=== PATIENT | female | born 1940 | race Caucasian/White ===

== ENCOUNTER 2017-06-16 14:26 | Inpatient (IN) | payer MEDICARE ==
[~2017-06-16] VITALS: Ht 167.6 cm; Wt 142.4 kg
--- NOTE | ~2017-06-16 | CN ---
PATIENT NAME:JUANA VERA MEDICAL RECORD: [id number] : 44 LOCATION:D. D.2120 ADMIT DATE: 06/16/17 ACCOUNT: [id number] CONSULTING PHYSICIAN: ALFREDO HARRIS MD REFERRING PHYSICIAN: SU PINEDA MD DATE OF CONSULTATION: 06/18/2017 HISTORY OF PRESENT ILLNESS: Juana Vera is a 76-year-old woman well known to me for rheumatoid arthritis, who has been currently admitted for acute pneumonia, hypoxemia and leukocytosis. The patient has approximately 18 months history of seronegative rheumatoid arthritis, when she presented with marked pain, swelling or stiffness of shoulders, elbows, wrists, fingers, knees, ankles with high ESR and CRP. Negative RA. Other serology is normal. She was initially placed on prednisone due to very active disease, received fairly high dose. She was started on methotrexate dose and was gradually increased to 25 mg weekly. She had some response. Later, sulfasalazine and hydroxychloroquine were added. She made some improvement. Prednisone was gradually reduced to moderate dose. Because of continued activity, she was started on Orencia on proper dosing fashion 1000 mg dosing approximately 5 months ago. Coincide with the Orencia, she has had marked improvement in her arthritis. She had been further tapering prednisone down to 5 mg daily. She has been doing well recently. She reports over the preceding few days for admission she had some cough, fever, chilliness and sputum production. She presented to Dr. Wilson's office on 06/16/2017 with WBC of 25,000, hemoglobin 13.8 and platelets normal. Sodium 134, potassium 4.5, BUN 10, creatinine 0.5. Liver enzymes normal. Chest x-ray on 06/16 showed pulmonary vascular congestion, some increased interstitial opacities, some bony left costophrenic angle, which was stable compared to previous chest x-ray of 05/15. Chest CT of 06/17 showed patchy ground glass and consolidative opacities in the right upper lobe compatible with an infectious or inflammatory process and all bronchiectasis in both lungs, hepatomegaly consistent both in lobes and liver. She reports she has improved over the last 24 hours with less shortness of breath and cough. Sputum was green and now is improving color. HOME MEDICATIONS: Methotrexate approximately 25 mg every Tuesday, and leucovorin 5 mg Tuesday, , Tuesday, folic acid 1 mg b.i.d. Tuesday, Tuesday and Tuesday, prednisone 5 mg daily, Orencia 1000 mg every 4 weeks (started approximately in December 2016), hydroxychloroquine, previous sulfasalazine, vitamin D 2000 units b.i.d., aspirin 81 mg daily, alendronate 70 mg weekly, vitamin E and Singulair. CURRENT MEDICATIONS: Xopenex every 4 hours, Atrovent updrafts, Mucinex b.i.d., Flonase nasal spray b.i.d., Lovenox 40 mg daily, Tessalon 200 mg t.i.d., aspirin 81 mg daily, Solu-Medrol 40 mg every 8 hours, Pulmicort 0.5 mg b.i.d., Brovana b.i.d., Singulair 10 mg daily, Zithromax 500 mg every 24 hours, pantoprazole 40 mg daily, Rocephin 1 g IV every 24 hours, Zofran 4 mg p.r.n., hydrocodone 10/325 mg q.6 hours p.r.n. and Tylenol p.r.n. PAST MEDICAL HISTORY: She has history of asthma and pneumonia. She is a remote smoker. She had history of partial colon resection for diverticulosis, right total knee replacement done for osteoarthritis, hysterectomy and appendectomy. CONSULT REPORT [id number] JUANA VERA ALLERGIES: SHE IS ALLERGIC TO ESTROGENS. SOCIAL HISTORY: She quit smoking many years ago. She does not drink alcohol. She lives in local area. FAMILY HISTORY: Negative for inflammatory arthritis. REVIEW OF SYSTEMS: She reports she had both Pneumovax and Prevnar 13. She has annual flu shots, but she has also had previous Zostavax. She denies headache, sinus drainage, mouth ulcers, chest pain, palpitations, abdominal pain, nausea, vomiting, diarrhea, dysuria, urgency, calf pain, previous DVT, bleeding or clotting disorders. PHYSICAL EXAMINATION: VITAL SIGNS: Blood pressure 155/63, pulse 88, respirations 18, temperature 98 and O2 saturation 96% on 4 liters. GENERAL: A well-developed, morbidly obese woman, mild tachypnea, but no acute distress. She is alert, oriented. HEAD: Normal female hair pattern. Eyes: Conjunctivae are clear. Mouth is moist without lesions. NECK: Supple, trachea is midline. There is no adenopathy in neck or supraclavicular areas. LUNGS: Reveal some faint diffuse wheezing without bronchial breath sound or rales. CARDIOVASCULAR: S1, S2 are normal without gallop, murmur or rub. Carotids are 2+ without delay or bruit. EXTREMITIES: Pedal pulses, 1+ trace edema of the feet. ABDOMEN: Soft, obese, nontender, without masses. MUSCULOSKELETAL: At this time, there is no inflammation or tenderness in the wrists fingers, elbows, shoulders, knees, and ankles. She has painless range of motion. SKIN: Without rash, petechiae, purpura or nodules. PSYCHIATRIC: Normal affect, alert and oriented. IMPRESSION: 1. Pneumonia, primarily right lung upper lobe with evidence of bronchiectasis, wheezing, leukocytosis and fever. 2. Seronegative rheumatoid arthritis, onset approximately 18 months ago, marked improvement with methotrexate low-dose prednisone, Orencia and previous sulfasalazine, Plaquenil. 3. Relevant immunosuppression from medications. 4. History of asthma. 5. Remote cigarette smoking. 6. Morbid obesity. RECOMMENDATIONS: 1. Continue supportive care. 2. Continue broad-spectrum antibiotics. 3. Continue to hold methotrexate and Orencia. 4. As the patient responds to treatment made later taper steroids back towards home dose 5 mg daily. 5. If the patient recovers from pneumonia, may be able to restart methotrexate at a lower dose. 6. We will review office chart to confirm doses of medications and to confirm CONSULT REPORT [id number] JUANA VERA that she has had previous vaccinations. TRANSINT:[id number] Voice Confirmation ID: [id number] DOCUMENT ID: [id number] ALFREDO HARRIS MD CC: [id number] DICTATION DATE: 06/18/17 1055 SCHEDULING ASSISTANT: 06/18/17 1731 ADM IN [facility] [address] [place] [address]
--- NOTE | ~2017-06-16 | OP ---
PATIENT NAME: LAM VERA MEDICAL RECORD: [id number] :42 LOCATION:D. D.0 ADMISSION DATE:06/16/17 SURGEON: PATRICIA RITCHIE MD DATE OF OPERATION: 06/22/2017 PROCEDURE: Fiberoptic bronchoscopy. INDICATION: Ms. Vera was admitted with acute asthma, COPD exacerbation and pneumonia. The patient had problems clearing her secretions. She has persistent wheezing and cough. Fiberoptic bronchoscopy was carried out to clear the airway of any mucous plug. MONITORING: EKG, pulse, blood pressure, SpO2 were monitored throughout the procedure. MEDICATIONS: Versed 2 mg IV, fentanyl 50 mcg IV, atropine 0.6 IM, Phenergan 12.5 mg IV. PROCEDURE IN DETAIL: The fiberoptic bronchoscope was easily passed through the mouth. The epiglottis was normal. The vocal cords were normal, moving equally on phonation. The main trachea, no endobronchial lesion was seen, but with expiration and coughing, the trachea will totally close. There were white yellowish secretions in the main trachea. The eliud was sharp. There were white yellowish secretion in the right main bronchus. There was severe bronchitic changes that bled easily by touching by the bronchoscope. With the expiration, the right main trachea and the left main trachea will totally occlude. There are no endobronchial lesion seen on the right side. The left main bronchus, the left upper lobe, left lower lobe within normal range, it will totally occlude with expiration and coughing. There were white yellowish secretion on the left side. No endobronchial lesion was seen. Specimen washing was obtained and sent for routine culture and sensitivity, AFB and fungus. The patient has severe tracheal bronchomalacia. This is the problem of clearing her secretions. TRANSINT:[id number] Voice Confirmation ID: [id number] DOCUMENT ID: [id number] PATRICIA RITCHIE MD CC: [id number] DICTATION DATE: 06/22/1744 RESOURCE RECOVERY SPECIALIST: 06/22/17 1148 ADM IN [facility] [address] [id number]
[~2017-06-16 14:26] MED LIST: ACETAMINOPHEN500 M1 PO; ADVAIR HFA 45/212 GM INH; BACTRIM DS TABL1 TAB PO; BENADRYL 2% CRE30 GM TOPICAL; BENADRYL50 MG PO; COLACE100 MG PO; ELIQUIS2.5 MG PO; ELIQUIS5 MG PO; HYDROCODONE-APA1 TAB PO; METHOTREXATE2.5 MG PO; MIRALAX17 GM PO; PERCOCET 10/3251 TA1 PO; PROVENTIL HFA6.7 GM INH; SINGULAIR10 MG PO; SPIRIVA18 MCG INH; STERAPRED DS 1210 MG PO; ZOFRAN4 MG PO
--- NOTE | 2017-06-16 14:30 | NUR ---
RECEIVED PT TO ROOM 2118 VIA EMS PER STRETCHER FROM DR GAITAN'S OFFICE DYSPNEA NOTED C/O DIZZINESS WHEN CHANGING POSITIONS O2 ON AT 3 LPM NC NO IV ACCESS TELEMETRY PLACED SR RATE 93
[2017-06-16 15:11] VITALS: BP 134/79; BMI 48.5
--- NOTE | 2017-06-16 15:35 | NUR ---
ARRIVED FROM DR. GAITAN'S OFFICE VIA AMBULANCE. 02 ON @ 2 L. COUGHING WITH PRODUCTION OF GREEN EXPECTORANT. IV STARTED IN R FOREARM WITH 20 G 1 INCH ON 1ST ATTEMPT. RALES, WHEEZING ON BOTH INSPIRATION AND EXPIRATION NOTED . SKIN WARM TO TOUCH BUT TEMP IS 99.3. MONITOR SHOWS NSR WITH RATE OF 88. WILL CONTINUE TO MONITOR.
--- NOTE | 2017-06-16 15:37 | NUR ---
PT ON FALL PRECAUTIONS WITH YELLOW BRACELET APPLIED. PT REFUSES TO WEAR NON SKID SOCKS. BED ALARM ON.
[2017-06-16 15:59] LABS: HEMATOCRIT 43.8 % (36.0-48.0); HEMOGLOBIN 13.8 g/dL (12-16); MCH 31.3 pg (26.0-34.0); MCHC 31.5 g/dL (31.0-37.0); MCV 99.3 fL (80.0-100.0); MEAN PLATELET VOLUME 11.5 fL (7.4-10.4); PLATELET COUNT 221 10x3/uL (130-400); RBC 4.41 10x6/uL (4.00-5.40); RDW 15.3 % (11.5-14.5); WBC 25.1 10x3/uL (4.8-10.8)
[2017-06-16] MEDS ORDERED: PREDNISONE5 MG PO (16:04)
[2017-06-16] MEDS ORDERED: HYDROCODONE-APA1 TAB PO (16:05)
[2017-06-16 16:14] LABS: LYMPHOCYTES 4 % (15-50); MONOCYTES 5 % (2-11); NEUTROPHILS 89 % (40-80); PLATELET ESTIMATE NORMAL
[2017-06-16 16:17] LABS: ALBUMIN 3.2 g/dL (3.4-5.0); ALKALINE PHOSPHATASE 54 U/L (46-116); ALT (SGPT) 25 U/L (10-68); BILIRUBIN - TOTAL 0.72 mg/dL (0.2-1.3); CALC OSMOLALITY 269 mosm/kg (275-300); CALCIUM 7.9 mg/dL (8.5-10.1); CARBON DIOXIDE 29.5 mmol/L (21.0-32.0); CHLORIDE - SERUM 97 mmol/L (98-107); CREATININE - SERUM 0.5 mg/dL (0.6-1.3); GLUCOSE 154 mg/dL (74-106); POTASSIUM - SERUM 4.5 mmol/L (3.5-5.1); PROTEIN - SERUM 6.3 g/dL (6.4-8.2); SODIUM 134 mmol/L (136-145); UREA NITROGEN 10 mg/dL (7-18); eGFR NON AFRICAN AMERICAN > 90 mL/min (90-120)
[2017-06-16] MEDS ORDERED: LEUCOVORIN CALCI5 MG PO (18:09)
[2017-06-16] MEDS ORDERED: ALENDRONATE SOD70 MG PO (18:11)
[2017-06-16] MEDS ORDERED: FOLIC ACID1 MG PO (18:14)
[2017-06-16] MEDS ORDERED: BAYER CHEWABLE81 MG PO (18:15)
[2017-06-16] MEDS ORDERED: VITAMIN D31000 UNIT PO (18:15)
[2017-06-16] MEDS ORDERED: VITAMIN E400 UNI2 PO (18:16)
[2017-06-16] MEDS ORDERED: MULTIPLE VITAMI1 TA1 PO (18:16)
[2017-06-16] MEDS ORDERED: KRILL OIL 1,001 EAC1 PO (18:18)
[2017-06-17] VITALS: BP 140/60
[2017-06-17 04:00] VITALS: BP 151/67
[2017-06-17 04:34] LABS: BASOPHILS 0.2 % (0-2); HEMATOCRIT 41.5 % (36.0-48.0); HEMOGLOBIN 13.4 g/dL (12-16); IMMATURE GRANULOCYTES 0.5 % (0-5); LYMPHOCYTES 5.7 % (15-50); MCH 31.5 pg (26.0-34.0); MCHC 32.3 g/dL (31.0-37.0); MCV 97.4 fL (80.0-100.0); MEAN PLATELET VOLUME 10.7 fL (7.4-10.4); MONOCYTES 7.2 % (2-11); NEUTROPHILS 85.4 % (40-80); PLATELET COUNT 219 10x3/uL (130-400); RBC 4.26 10x6/uL (4.00-5.40); RDW 15.1 % (11.5-14.5)
[2017-06-17 04:44] LABS: WBC 17.7 10x3/uL (4.8-10.8)
[2017-06-17 05:17] LABS: CALC OSMOLALITY 277 mosm/kg (275-300); CALCIUM 7.9 mg/dL (8.5-10.1); CARBON DIOXIDE 31.9 mmol/L (21.0-32.0); CHLORIDE - SERUM 102 mmol/L (98-107); GLUCOSE 184 mg/dL (74-106); POTASSIUM - SERUM 3.9 mmol/L (3.5-5.1); SODIUM 137 mmol/L (136-145); UREA NITROGEN 11 mg/dL (7-18); eGFR NON AFRICAN AMERICAN 87 mL/min (90-120)
[2017-06-17 05:20] LABS: CREATININE - SERUM 0.7 mg/dL (0.6-1.3)
--- NOTE | 2017-06-17 07:30 | NUR ---
RECEIVED PT IN BED EYES CLOSED RESP UNLABORED O2 ON 4LPM NC NAD NOTED WILL CONTINUE TO MONITOR
[2017-06-17 08:25] VITALS: BP 163/81
[2017-06-17 12:04] VITALS: BP 145/71
[2017-06-17 13:48] VITALS: Ht 167.6 cm; Wt 142.4 kg
[2017-06-17 14:30] VITALS: BP 131/65
[2017-06-17 19:00] VITALS: BP 170/70
--- NOTE | 2017-06-17 20:00 | NUR ---
PT RESTING IN BED WITH O2 OFF. NS @ 75ML/HR INFUSING AT 75ML/HR. SCDS IN PLACE. SR PER TELEMETRY. INSTRUCTED PT WEAR HER O2 @ 5L/NC TO PREVENT DESATURATION. COMPLETED ASSESSMENT. CALL LIGHT IN REACH. CPOC.
--- NOTE | 2017-06-17 23:15 | NUR ---
BEDTIME MEDS GIVEN. PT GIVEN SHOWER PER OSTOMY RN.
--- NOTE | 2017-06-18 03:32 | NUR ---
UP TO BSC TO VOID. RT IN ROOM TO DO BREATHING TREATMENT. NO DISTRESS.
[2017-06-18 04:00] VITALS: BP 157/71
[2017-06-18 07:55] LABS: BASOPHILS 0.1 % (0-2); EOSINOPHILS 0 % (0-7); HEMATOCRIT 41.4 % (36.0-48.0); HEMOGLOBIN 12.8 g/dL (12-16); IMMATURE GRANULOCYTES 0.9 % (0-5); MCH 31.1 pg (26.0-34.0); MCHC 30.9 g/dL (31.0-37.0); MEAN PLATELET VOLUME 10.4 fL (7.4-10.4); PLATELET COUNT 245 10x3/uL (130-400); RBC 4.12 10x6/uL (4.00-5.40); RDW 15.2 % (11.5-14.5)
[2017-06-18 07:58] LABS: MCV 100.5 fL (80.0-100.0); WBC 12.6 10x3/uL (4.8-10.8)
[2017-06-18 08:00] VITALS: BP 155/63
[2017-06-18 08:17] LABS: CALC OSMOLALITY 281 mosm/kg (275-300); CARBON DIOXIDE 34.2 mmol/L (21.0-32.0); CHLORIDE - SERUM 104 mmol/L (98-107); CREATININE - SERUM 0.6 mg/dL (0.6-1.3); GLUCOSE 147 mg/dL (74-106); POTASSIUM - SERUM 4.5 mmol/L (3.5-5.1); PRO BNP 295 pg/mL (0-125); SODIUM 140 mmol/L (136-145); UREA NITROGEN 12 mg/dL (7-18); eGFR NON AFRICAN AMERICAN > 90 mL/min (90-120)
--- NOTE | 2017-06-18 08:19 | NUR ---
ASSESSMENT DONE. DENIES NEEDS
--- NOTE | 2017-06-18 10:18 | NUR ---
RESTS WITH EYES CLOSED. RESP UL ON . CALL LIGHT IN REACH. WILL MONITOR NEEDS.
[2017-06-18 12:00] VITALS: BP 137/61
[2017-06-18 16:00] VITALS: BP 119/55
--- NOTE | 2017-06-18 16:57 | NUR ---
WITHOUT CHANGES OR DISTRESS NOTED AT THIS TIME. DENIES NEEDS AT THIS TIME.
[2017-06-18 19:00] VITALS: BP 149/72
[2017-06-19] VITALS: BP 150/88
[2017-06-19 04:00] VITALS: BP 132/71
[2017-06-19 07:14] LABS: BASOPHILS 0.1 % (0-2); EOSINOPHILS 0 % (0-7); HEMATOCRIT 42.1 % (36.0-48.0); HEMOGLOBIN 13.1 g/dL (12-16); IMMATURE GRANULOCYTES 1.1 % (0-5); LYMPHOCYTES 16.3 % (15-50); MCHC 31.1 g/dL (31.0-37.0); MCV 99.5 fL (80.0-100.0); MEAN PLATELET VOLUME 10.8 fL (7.4-10.4); MONOCYTES 10.9 % (2-11); NEUTROPHILS 71.6 % (40-80); PLATELET COUNT 283 10x3/uL (130-400); RBC 4.23 10x6/uL (4.00-5.40); RDW 15.1 % (11.5-14.5); WBC 12.3 10x3/uL (4.8-10.8)
[2017-06-19 07:22] LABS: CALC OSMOLALITY 280 mosm/kg (275-300); CARBON DIOXIDE 35.7 mmol/L (21.0-32.0); CHLORIDE - SERUM 104 mmol/L (98-107); CREATININE - SERUM 0.6 mg/dL (0.6-1.3); GLUCOSE 142 mg/dL (74-106); POTASSIUM - SERUM 4.4 mmol/L (3.5-5.1); SODIUM 140 mmol/L (136-145); UREA NITROGEN 13 mg/dL (7-18); eGFR NON AFRICAN AMERICAN > 90 mL/min (90-120)
[2017-06-19 09:17] VITALS: BP 172/77
--- NOTE | 2017-06-19 09:52 | NUR ---
RESTS WITH EYES CLOSED. RESP UL ON 02 5L NC. CALL LIGHT IN REACH. WILL CONT. PLAN OF CARE.
[2017-06-19 11:49] VITALS: BP 127/82
[2017-06-19 16:01] VITALS: BP 145/80
[2017-06-19 20:00] VITALS: BP 154/77
--- NOTE | 2017-06-19 20:00 | NUR ---
RESTING IN BED WITH NO DISTRESS. O2 @ 5L/NC WITH NONLABORED RESPIRATIONS. SR PER TELEMETRY. SALINE LOCK TO RFA. SEE ASSESSMENT. CPOC.
--- NOTE | 2017-06-19 22:53 | NUR ---
BEDTIME MEDS GIVEN. BREATHING TREATMENT IN PROGRESS. WATCHING TV.
[2017-06-20 01:15] VITALS: BP 172/88
[2017-06-20 04:51] LABS: BASOPHILS 0.1 % (0-2); EOSINOPHILS 0 % (0-7); HEMATOCRIT 43.3 % (36.0-48.0); HEMOGLOBIN 13.5 g/dL (12-16); IMMATURE GRANULOCYTES 1.6 % (0-5); LYMPHOCYTES 12.8 % (15-50); MCH 30.8 pg (26.0-34.0); MCHC 31.2 g/dL (31.0-37.0); MCV 98.6 fL (80.0-100.0); MEAN PLATELET VOLUME 10.6 fL (7.4-10.4); MONOCYTES 8.1 % (2-11); NEUTROPHILS 77.4 % (40-80); PLATELET COUNT 270 10x3/uL (130-400); RBC 4.39 10x6/uL (4.00-5.40); RDW 14.7 % (11.5-14.5); WBC 10.4 10x3/uL (4.8-10.8)
[2017-06-20 04:59] LABS: CALC OSMOLALITY 281 mosm/kg (275-300); CALCIUM 8.2 mg/dL (8.5-10.1); CARBON DIOXIDE 38.1 mmol/L (21.0-32.0); CHLORIDE - SERUM 98 mmol/L (98-107); CREATININE - SERUM 0.7 mg/dL (0.6-1.3); POTASSIUM - SERUM 4.5 mmol/L (3.5-5.1); SODIUM 138 mmol/L (136-145); UREA NITROGEN 13 mg/dL (7-18); eGFR NON AFRICAN AMERICAN 87 mL/min (90-120)
[2017-06-20 05:00] LABS: GLUCOSE 206 mg/dL (74-106)
[2017-06-20 10:36] VITALS: BP 161/72
[2017-06-20 12:00] VITALS: BP 154/82
--- NOTE | 2017-06-20 13:27 | NUR ---
IV STARTED TO LEFT FA WITH 22 GAUGE CATH X 1 STICK. LINE IS PATENT.
[2017-06-20 17:43] VITALS: BP 201/85
--- NOTE | 2017-06-20 19:44 | NUR ---
AWAKE AND DOING RESP THERAPY. NO DISTRESS AT PRESENT.
[2017-06-20 20:00] VITALS: BP 159/88
--- NOTE | 2017-06-20 22:40 | NUR ---
PT REUESTED IV TO BE REPOSITION. ATTEMPTED IV IN R HAND BUT VEIN BLEW. PT VERY ANXIOUS ABOUT IV STARTS.
[2017-06-21 05:11] VITALS: BP 168/77
[2017-06-21 06:15] LABS: BASOPHILS 0.1 % (0-2); EOSINOPHILS 0 % (0-7); HEMATOCRIT 46.2 % (36.0-48.0); HEMOGLOBIN 14.9 g/dL (12-16); IMMATURE GRANULOCYTES 2.7 % (0-5); LYMPHOCYTES 10.2 % (15-50); MCHC 32.3 g/dL (31.0-37.0); MEAN PLATELET VOLUME 10.4 fL (7.4-10.4); MONOCYTES 9.1 % (2-11); NEUTROPHILS 77.9 % (40-80); PLATELET COUNT 295 10x3/uL (130-400); RDW 14.4 % (11.5-14.5); WBC 12.2 10x3/uL (4.8-10.8)
[2017-06-21 06:18] LABS: MCV 96.3 fL (80.0-100.0)
[2017-06-21 06:25] LABS: CALC OSMOLALITY 280 mosm/kg (275-300); CARBON DIOXIDE 34.5 mmol/L (21.0-32.0); CHLORIDE - SERUM 98 mmol/L (98-107); CREATININE - SERUM 0.7 mg/dL (0.6-1.3); GLUCOSE 206 mg/dL (74-106); POTASSIUM - SERUM 4.7 mmol/L (3.5-5.1); SODIUM 137 mmol/L (136-145); UREA NITROGEN 16 mg/dL (7-18); eGFR NON AFRICAN AMERICAN 87 mL/min (90-120)
[2017-06-21 09:14] LABS: IMMUNOGLOBULIN E 88 IU/mL (0-100)
[2017-06-21 09:32] VITALS: BP 164/83
[2017-06-21 16:33] VITALS: BP 162/94
--- NOTE | 2017-06-21 17:46 | NUR ---
Patient Name: LAM VERA Admission Status: Elective Accout number: [id number] Admission Date: 06-16-2017 : 1940 Admission Diagnosis:SHORTNESS OF BREATH Attending: GAYATRI Current LOS: 5 Anticipated DC Date: Planned Disposition: Home with Home Health Primary Insurance: MEDICARE A & B PLANNED EXTERNAL PROVIDER: TO BE DETERMINED BY PT CHOICE Discharge Planning Comments: * Is the patient Alert and Oriented? Yes 0 * How many steps to enter\exit or inside your home? 3 0 * PCP DR. GAITAN 0 * Pharmacy [facility] 0 * Preadmission Environment Home with Family 0 * ADLs Independent 0 * Equipment Walker 0 * Other Equipment ANY [facility] PROVIDER EXCEPT [facility] 0 * List name and contact numbers for known caregivers / representatives who currently or will assist patient after discharge: ALVAREZ NICOLE, SPOUSE, 0 * Community resources currently utilized None 0 * Please name any agencies selected above. NONE 0 * Additional services required to return to the preadmission environment? No 0 * Can the patient safely return to the preadmission environment? Yes 0 * Has this patient been hospitalized within the prior 30 days at any hospital? No 0 CM MET WITH PT IN ROOM TO DISCUSS DISCHARGE PLANNING AND NEEDS. PT REPORTS LIVING AT HOME INDEPENDENTLY WITH HER SPOUSE. PT HAS A WALKER WITH NO MEDICAL EQUIPMENT PROVIDER PREFERENCE BUT DOES NOT WANT TO USE [facility]. PT HAS NO OUTSIDE SERVICES ASSISTING IN THE HOME. PT REPORTS HER SPOUSE BROKE HIS COLLAR BONE AND SHE IS HIS CAREGIVER FOR NOW AT HOME. CM DISCUSSED AVAILABILITY OF HOME HEALTH, REHAB SERVICES AND MEDICAL EQUIPMENT. PT DENIES DISCHARGE NEEDS, REPORTS SHE WILL FIND SOMEONE TO PICK HER UP FOR DISCHARGE HOME. IMPORTANT MESSAGE FROM MEDICARE PROVIDED AND EXPLAINED. UNIT NURSE THREAD DRAWER LENORA INFORMED CM THAT SHE HAS TALKED TO PT WHO HAS REQUESTED HOME HEALTH FOR DISCHARGE HOME. CM WILL ARRANGE WITH PHYSICIAN AGREEMENT, ORDERS AND PT'S CHOICE OF HOME HEALTH AGENCY. Business Services Intern: Temo Bain
[2017-06-21 17:59] VITALS: BP 181/100
--- NOTE | 2017-06-21 19:40 | NUR ---
PT IN BED RESTING AROUSES TO VOICE. STATES IV WAS REMOVED AND SHE NO LONGER WANTS IV MEDICATION. WILL CONTINUE TO MONITOR
[2017-06-22 01:10] VITALS: BP 155/82
--- NOTE | 2017-06-22 04:23 | NUR ---
RESTING WITH EYES CLOSED, RESPERATIONS EVEN, NO S/S DISTRESS NOTED.
[2017-06-22 05:59] LABS: BASOPHILS 0.1 % (0-2); EOSINOPHILS 0.3 % (0-7); HEMATOCRIT 46.2 % (36.0-48.0); HEMOGLOBIN 14.8 g/dL (12-16); IMMATURE GRANULOCYTES 4.2 % (0-5); LYMPHOCYTES 20.7 % (15-50); MCH 31.1 pg (26.0-34.0); MCV 97.1 fL (80.0-100.0); MEAN PLATELET VOLUME 10.6 fL (7.4-10.4); MONOCYTES 11.9 % (2-11); NEUTROPHILS 62.8 % (40-80); PLATELET COUNT 294 10x3/uL (130-400); RBC 4.76 10x6/uL (4.00-5.40); RDW 14.9 % (11.5-14.5)
[2017-06-22 07:03] LABS: CALCIUM 8.6 mg/dL (8.5-10.1); CARBON DIOXIDE 37.9 mmol/L (21.0-32.0); CHLORIDE - SERUM 100 mmol/L (98-107); CREATININE - SERUM 0.7 mg/dL (0.6-1.3); POTASSIUM - SERUM 4.2 mmol/L (3.5-5.1); SODIUM 142 mmol/L (136-145); eGFR NON AFRICAN AMERICAN 87 mL/min (90-120)
[2017-06-22 07:13] LABS: CALC OSMOLALITY 287 mosm/kg (275-300); GLUCOSE 122 mg/dL (74-106); UREA NITROGEN 24 mg/dL (7-18)
--- NOTE | 2017-06-22 07:56 | NUR ---
IV STARTED TO RIGHT HAND. CONSENTS SIGNED FOR [facility]. PRE-OPS GIVEN. LEAVING FOR PROCEDURE BY BED.
--- NOTE | 2017-06-22 08:58 | NUR ---
BACK FROM [facility]. VS WNL. WILL MONITOR.
--- NOTE | 2017-06-22 15:17 | NUR ---
Nutrition follow-up: Diet: ADA consistent CHO PO intake ~60% of meals Labs reviewed Pt has been NPO for procedure RDN has been working with pt on meal choices. RDN following.
--- NOTE | 2017-06-22 15:18 | NUR ---
up to chair. call light in reach. madelin needs.
--- NOTE | 2017-06-22 19:45 | NUR ---
INTRODUCED MYSELF TO PT PRIMARY RN FOR [facility] SHIFT. PT A&O SITTING UP ON EDGE OF BED WATCHING TV. PT DENIES ANY CURRENT PAIN OR NEEDS AT THIS TIME. CL IN REACH, BED IN LOWEST, SIDE RAILS X2. WILL CPOC.
[2017-06-22 20:00] VITALS: BP 141/60
--- NOTE | 2017-06-22 20:40 | NUR ---
PROVIDED PT WITH NIGHTLY MEDICATIONS. PT A&O RESTING QUIETLY IN BED WATCHING TV. RR NONLABORED WITH NC @5L IN PLACE. LUNGS HAVE WHEEZING NOTED THROUGHOUT ALL LOBES. PT IS CONSTANTLY COUGHING BUT STATES SHE ISNT COUGHING ANYTHING UP. TELEMETRY IN PLACE AND RUNNING SR @71 PER ChatID TECH. PT AWARE THAT WE NEED A UA AND WILL PROVIDE WHEN SHE IS ABLE. CL IN REACH, BED IN LOWEST, SIDE RAILS X2. NO CURRENT NEEDS AT THIS TIME. WILL CPOC.
--- NOTE | 2017-06-23 00:33 | NUR ---
WOKE PT TO PUSH SOLU-MEDROL ORDERED. PUSHED SLOWLY OVER 2 MINS VIA R.HAND PIV ACCESS. INITIATED IVPB ANBX INFUSING OVER 30MINS. PT RESTING AND DENIES ANY CURRENT PAIN OR NEEDS. CL IN REACH, BED IN LOWEST, SIDE RAILS X2. WILL CPOC.
--- NOTE | 2017-06-23 02:25 | NUR ---
PT STATED SHE DOESNT HAVE TO WEAR HER TELEMETRY ANYMORE. ENCOURAGED PT TO KEEP WEARING IT UNTIL ORDER WAS D/C BUT SHE STATES THE DOCTOR TOLD HER SHE NO LONGER NEEDED IT AND WANTS IT OFF. PT BEEN RUNNING RRR SR. WILL CTM.
[2017-06-23 04:54] VITALS: BP 137/87
[2017-06-23 05:52] LABS: BASOPHILS 0.1 % (0-2); EOSINOPHILS 0 % (0-7); HEMATOCRIT 45.3 % (36.0-48.0); HEMOGLOBIN 14.7 g/dL (12-16); MCH 31.1 pg (26.0-34.0); MCHC 32.5 g/dL (31.0-37.0); MEAN PLATELET VOLUME 10.4 fL (7.4-10.4); MONOCYTES 5.2 % (2-11); NEUTROPHILS 84.7 % (40-80); PLATELET COUNT 271 10x3/uL (130-400); RBC 4.72 10x6/uL (4.00-5.40); RDW 14.7 % (11.5-14.5); WBC 16.9 10x3/uL (4.8-10.8)
[2017-06-23 06:21] LABS: ALBUMIN 3.1 g/dL (3.4-5.0); ANION GAP 11.1 mmol/L (8-16); BILIRUBIN - TOTAL 0.43 mg/dL (0.2-1.3); CALCIUM 8.7 mg/dL (8.5-10.1); CARBON DIOXIDE 34.7 mmol/L (21.0-32.0); CREATININE - SERUM 0.9 mg/dL (0.6-1.3); POTASSIUM - SERUM 4.8 mmol/L (3.5-5.1); PROTEIN - SERUM 6.2 g/dL (6.4-8.2)
--- NOTE | 2017-06-23 10:00 | NUR ---
TELEMETRY SR. RESP UL ON 02 4L NC. IV PATENT. CALL LIGHT IN REACH. WILL CONT. PLAN OF CARE.
[2017-06-23 12:01] VITALS: BP 140/75
[2017-06-23 12:16] LABS: ACID FAST SMEAR Negative (()); AFB SPECIMEN PROCESSING Concentration (())
[2017-06-23 15:32] VITALS: BP 106/67
[2017-06-23 19:00] VITALS: BP 151/89
--- NOTE | 2017-06-23 19:40 | NUR ---
RESUMED CARE OF PT, UP ON SIDE OF BED RESPIRATIONS EVEN AND UNLABORED ON 4LPM VIA NC. 95 SR ON TELEMETRY. NO NEEDS AT THIS TIME, CALL LIGHT IN REACH. WILL CONTINUE TO MONITOR. SEE NURSE ASSESSMENT.
[2017-06-24] VITALS: BP 167/98
[2017-06-24 05:41] LABS: HEMATOCRIT 46.4 % (36.0-48.0); HEMOGLOBIN 15.2 g/dL (12-16); MCH 31.3 pg (26.0-34.0); MCHC 32.8 g/dL (31.0-37.0); MCV 95.5 fL (80.0-100.0); MEAN PLATELET VOLUME 10.7 fL (7.4-10.4); PLATELET COUNT 339 10x3/uL (130-400); RBC 4.87 10x6/uL (4.00-5.40); RDW 14.7 % (11.5-14.5); WBC 23.6 10x3/uL (4.8-10.8)
[2017-06-24 05:53] LABS: ALBUMIN 3.4 g/dL (3.4-5.0); ANION GAP 7.6 mmol/L (8-16); BILIRUBIN - TOTAL 0.5 mg/dL (0.2-1.3); CARBON DIOXIDE 34.9 mmol/L (21.0-32.0); CREATININE - SERUM 0.9 mg/dL (0.6-1.3); POTASSIUM - SERUM 4.5 mmol/L (3.5-5.1); PROTEIN - SERUM 6.8 g/dL (6.4-8.2)
[2017-06-24 06:21] LABS: LYMPHOCYTES 11 % (15-50); MONOCYTES 3 % (2-11); NEUTROPHILS 82 % (40-80); PLATELET ESTIMATE NORMAL
[2017-06-24 08:00] VITALS: BP 154/90
[2017-06-24 12:15] LABS: FUNGUS STAIN Final report (())
[2017-06-24 13:33] VITALS: BP 142/103
[2017-06-24 16:55] VITALS: BP 155/75
[2017-06-24 19:00] VITALS: BP 140/86
[2017-06-25] VITALS: BP 154/81
--- NOTE | 2017-06-25 07:21 | NUR ---
PT SITTING UP ON SIDE OF BED WITH AUXILIARY PLANT OPERATOR DRAWING BLOOD. PT DENIES NEEDS WILL CONT TO MONITOR
[2017-06-25 07:42] LABS: BASOPHILS 0.1 % (0-2); EOSINOPHILS 0 % (0-7); HEMATOCRIT 47.2 % (36.0-48.0); HEMOGLOBIN 15.6 g/dL (12-16); IMMATURE GRANULOCYTES 4.8 % (0-5); LYMPHOCYTES 8.4 % (15-50); MCH 30.7 pg (26.0-34.0); MCHC 33.1 g/dL (31.0-37.0); MCV 92.9 fL (80.0-100.0); MEAN PLATELET VOLUME 11.6 fL (7.4-10.4); MONOCYTES 7.9 % (2-11); NEUTROPHILS 78.8 % (40-80); PLATELET COUNT 242 10x3/uL (130-400); RBC 5.08 10x6/uL (4.00-5.40); RDW 14.6 % (11.5-14.5); WBC 20.1 10x3/uL (4.8-10.8)
[2017-06-25 07:55] LABS: CALC OSMOLALITY 285 mosm/kg (275-300); CALCIUM 8.7 mg/dL (8.5-10.1); CARBON DIOXIDE 28.4 mmol/L (21.0-32.0); CHLORIDE - SERUM 98 mmol/L (98-107); CREATININE - SERUM 0.7 mg/dL (0.6-1.3); GLUCOSE 202 mg/dL (74-106); MAGNESIUM - SERUM 2.4 mg/dL (1.8-2.4); SODIUM 137 mmol/L (136-145); UREA NITROGEN 29 mg/dL (7-18); eGFR NON AFRICAN AMERICAN 87 mL/min (90-120)
[2017-06-25 08:06] LABS: POTASSIUM - SERUM 5.6 mmol/L (3.5-5.1)
[2017-06-25 08:39] VITALS: BP 154/73
[2017-06-25 13:00] VITALS: BP 122/74
--- NOTE | 2017-06-25 13:51 | NUR ---
PER DR BUSH, CHANGE THE PA AND LATERAL CXR TO A ONE VIEW PORTABLE.
[2017-06-25 17:31] VITALS: BP 139/74
--- NOTE | 2017-06-25 17:57 | NUR ---
PT SITTING UP ON SIDE OF BED DENIES NEEDS
[2017-06-25 19:00] VITALS: BP 158/78
[2017-06-26 04:51] LABS: BASOPHILS 0.2 % (0-2); EOSINOPHILS 0 % (0-7); HEMATOCRIT 47.7 % (36.0-48.0); HEMOGLOBIN 15.7 g/dL (12-16); IMMATURE GRANULOCYTES 5.4 % (0-5); LYMPHOCYTES 5.4 % (15-50); MCH 31.7 pg (26.0-34.0); MCHC 32.9 g/dL (31.0-37.0); MEAN PLATELET VOLUME 10.9 fL (7.4-10.4); MONOCYTES 5.6 % (2-11); NEUTROPHILS 83.4 % (40-80); RBC 4.95 10x6/uL (4.00-5.40); RDW 14.7 % (11.5-14.5); WBC 18.9 10x3/uL (4.8-10.8)
[2017-06-26 04:52] LABS: MCV 96.4 fL (80.0-100.0); PLATELET COUNT 323 10x3/uL (130-400)
[2017-06-26 05:05] LABS: ANION GAP 12.9 mmol/L (8-16); CARBON DIOXIDE 31.8 mmol/L (21.0-32.0); CREATININE - SERUM 0.9 mg/dL (0.6-1.3); MAGNESIUM - SERUM 2.4 mg/dL (1.8-2.4); PHOSPHOROUS 3.8 mg/dL (2.5-4.9); POTASSIUM - SERUM 4.7 mmol/L (3.5-5.1)
--- NOTE | 2017-06-26 07:30 | NUR ---
RECEIVED PT IN BED AAOX4 RESP UNLABORED PT STATING I AM NOT GOING TO BE STUCK ANYMORE NO ONE IS GOING TO CHANGE MY IV THEY ARE SUPPOSE TO PUT A PICC LINE IN TOMORROW IF I DON'T GO HOME FIRST
[2017-06-26 08:15] VITALS: BP 170/100
--- NOTE | 2017-06-26 11:24 | NUR ---
IV INFILTRATED TO RFA SLIGHT REDNESS AND SLIGHT EDEMA NOTED TO SITE SALINE LOCK DCD WITH IV CATHETER INTACT REFUSING TO BE RESITED KELIN THEY ARE PUTTING A PICC LINE IN TOMORROW AND THEY CAN JUST WAIT SO IF IT'S IV I AM NOT GOING TO TAKE IT
[2017-06-26 12:00] VITALS: BP 162/63
--- NOTE | 2017-06-26 13:26 | NUR ---
IN SHOWER AT THIS TIME HARJINDER NOTED
--- NOTE | 2017-06-26 15:15 | NUR ---
DR MARROQUIN'S MADE AWARE PT REFUSES TO HAVE IV PLACED AND HAS NOT TAKEN IV SOLUMEDROL TODAY
[2017-06-26 16:05] VITALS: BP 93/69
--- NOTE | 2017-06-26 16:45 | NUR ---
DR RITCHIE AWARE PT IS REFUSING IV PLACEMENT AND HAS NOT HAD IV SOLUMEDROL TODAY
[2017-06-26 20:00] VITALS: BP 107/65
--- NOTE | 2017-06-26 20:00 | NUR ---
RESTING IN BED WITH NO DISTRESS. NO IV ACCESS, DENIES PAIN OR DISOCOMFORT. O2 @ 4L/NC. SEE ASSESSNEBT, CPOC,
[2017-06-27 05:00] VITALS: BP 132/57
[2017-06-27 06:27] LABS: BASOPHILS 0.2 % (0-2); EOSINOPHILS 1.4 % (0-7); HEMATOCRIT 44.1 % (36.0-48.0); HEMOGLOBIN 14.1 g/dL (12-16); IMMATURE GRANULOCYTES 5.3 % (0-5); LYMPHOCYTES 22.6 % (15-50); MCH 30.8 pg (26.0-34.0); MCV 96.3 fL (80.0-100.0); MONOCYTES 10.3 % (2-11); NEUTROPHILS 60.2 % (40-80); PLATELET COUNT 263 10x3/uL (130-400); RBC 4.58 10x6/uL (4.00-5.40); WBC 16.6 10x3/uL (4.8-10.8)
[2017-06-27 06:51] LABS: ANION GAP 11.3 mmol/L (8-16); CALCIUM 8.2 mg/dL (8.5-10.1); CARBON DIOXIDE 30.6 mmol/L (21.0-32.0); CREATININE - SERUM 0.8 mg/dL (0.6-1.3)
[2017-06-27 06:52] LABS: POTASSIUM - SERUM 3.9 mmol/L (3.5-5.1)
--- NOTE | 2017-06-27 07:23 | NUR ---
ASSESSMENT DONE. DENIES NEEDS.
[2017-06-27 08:00] VITALS: BP 123/73
--- NOTE | 2017-06-27 10:01 | NUR ---
RESTS IN BED. NO NEEDS VOICED. CALL LIGHT IN REACH. WILL MONITOR NEEDS.
[2017-06-27 12:00] VITALS: BP 120/63
--- NOTE | 2017-06-27 13:49 | NUR ---
Nutrition follow-up: Diet: low sodium with yogurt all meals per pt request PO intake 100% of last 6 meals; improved Labs reviewed Wt: 314# +BM RDN following.
[2017-06-27 16:00] VITALS: BP 155/73
[2017-06-27] MEDS ORDERED: ATROVENT 0.02%2.5 ML UPD (17:03)
[2017-06-27] MEDS ORDERED: XOPENEX 0.0.63 MG/3 UPD (17:03)
[2017-06-27] MEDS ORDERED: PULMICORT0.5 MG/21 UPD (17:10)
[2017-06-27] MEDS ORDERED: PREDNISONE20 MG PO (17:10)
[2017-06-27] MEDS ORDERED: IPRAT-ALBUT 0.5-3 ML UPD (17:10)
--- NOTE | 2017-06-27 17:41 | NUR ---
WITHOUT CHANGES OR DISTRESS NOTED AT THIS TIME. DENIES NEEDS.
--- NOTE | 2017-06-27 18:09 | NUR ---
Patient Name: LAM VERA Encounter No: [id number] : 1940 Primary Insurance: MEDICARE A & B Anticipated DC Date: Planned Disposition: Home with Home Health External Planned Provider: [facility] DCP follow-up note: CM RECEIVED DISCHARGE ORDER WITH HOME HEALTH AND NEBULIZER ORDER. CM ADVISED THAT PT WAS TESTED BUT DID NOT QUALIFY FOR OXYGEN AT HOME. CM MET WITH PT IN ROOM, DISCUSSED DISCHARGE NEEDS. PT WANTS HOME HEALTH, CHOSE [facility], CHOICE LETTER SIGNED. PT ALSO WANTED NEBULIZER FROM [facility]. CM CALLED [facility], WHICH WAS CLOSED. PT WANTED NEBULIZER TONIGHT AND WANTED IT DELIVERED TO HOSPITAL. CM DISCUSSED AVAILABLE EQUIPMENT COMPANIES IN [facility] AND INFORMED HER THAT ALL MAY DELIVER TO HOSPITAL OR HOME, PT OK WITH [facility] SINCE HER PHARMACY IS CLOSED. IMPORTANT MESSAGE FROM MEDICARE PROVIDED AND EXPLAINED. PT REPORTS HER SPOUSE WILL BE PICKING HER UP THIS EVENING. CM CALLED [facility]. [phone], SPOKE TO HERMANN AND PROVIDED REFERRAL INFORMATION. RAY FAXED DWO TO [facility] WHO OBTAINED SIGNATURE FROM DR. PARRA AND FAXED BACK TO HERMANN WITH THE REFERRAL INFORMATION, . RAY TO DELIVER TO HOSPITAL. CM CALLED DARCIE OF [facility], , LEFT DETAILED MESSAGE ASKING FOR RETURN CALL FOR HOME HEALTH REFERRAL. NO RETURN CALL RECEIVED, CM CALLED [facility], , SPOKE TO HAYDER AND PROVIDED REFERRAL, AFTER A BRIEF HOLD, WAS ADVISED THEY CAN ADMIT PT ON TUESDAY; CM SPOKE TO PT WHO WAS OK WITH TUESDAY ADMIT AND DID NOT WANT TO USE ANOTHER COMPANY. CM NOTIFIED HAYDER AT [facility]. CM FAXED REFERRAL TO [facility] AT [phone]. RAY FROM [facility] ARRIVED AND DELIVERED NEBULIZER TO PT IN ROOM FOR DISCHARGE HOME THIS EVENING. Temo Bain, CASE MANAGEMENT
[2017-06-29 09:17] LABS: FUNGUS MYCOLOGY CULTURE Preliminary report (())
== END 2017-06-27 19:45 | disposition home health service (06) | DRG 190 ==
LOC: D.M2 14:26
PROVIDERS: Family Medicine; Internal Medicine Pulmonary Disease; ADMIT Emergency Medicine
PROC: 0BB38ZX Excision of Right Main Bronchus, Via Natural or Artificial Opening Endoscopic, Diagnostic (ICD-10-PCS; 2017-06-22)
PROC: 0BB78ZX Excision of Left Main Bronchus, Via Natural or Artificial Opening Endoscopic, Diagnostic (ICD-10-PCS; principal; 2017-06-22 08:00)
PROC: 05HF33Z Insertion of Infusion Device into Left Cephalic Vein, Percutaneous Approach (ICD-10-PCS; 2017-06-27)
PROC: B54NZZA Ultrasonography of Left Upper Extremity Veins, Guidance (ICD-10-PCS; 2017-06-27)
DX: J44.0 Chronic obstructive pulmonary disease with (acute) lower respiratory infection (principal); J15.6 Pneumonia due to other Gram-negative bacteria; J47.0 Bronchiectasis with acute lower respiratory infection; Z68.42 Body mass index [BMI] 45.0-49.9, adult; I50.30 Unspecified diastolic (congestive) heart failure; J47.1 Bronchiectasis with (acute) exacerbation; J31.0 Chronic rhinitis; J32.9 Chronic sinusitis, unspecified; G47.33 Obstructive sleep apnea (adult) (pediatric); G62.9 Polyneuropathy, unspecified; I25.10 Atherosclerotic heart disease of native coronary artery without angina pectoris; M06.9 Rheumatoid arthritis, unspecified; Z79.01 Long term (current) use of anticoagulants; E66.01 Morbid (severe) obesity due to excess calories; R16.0 Hepatomegaly, not elsewhere classified; J98.09 Other diseases of bronchus, not elsewhere classified; Z86.718 Personal history of other venous thrombosis and embolism; Z87.891 Personal history of nicotine dependence; J44.1 Chronic obstructive pulmonary disease with (acute) exacerbation

== ENCOUNTER → 2018-03-08 08:33 | Outpatient (CLI) | payer OTHER ==
[~2018-03-08] VITALS: Ht 167.6 cm; Wt 137.0 kg
[~2018-03-08 08:33] MED LIST changes: +ALENDRONATE SOD70 MG PO; +ATROVENT 0.02%2.5 ML UPD; +BAYER CHEWABLE81 MG PO; +FOLIC ACID1 MG PO; +IPRAT-ALBUT 0.5-3 ML UPD; +KRILL OIL 1,001 EAC1 PO; +LEUCOVORIN CALCI5 MG PO; +MULTIPLE VITAMI1 TA1 PO; +PREDNISONE20 MG PO; +PREDNISONE5 MG PO; +PULMICORT0.5 MG/21 UPD; +VITAMIN D31000 UNIT PO; +VITAMIN E400 UNI2 PO; +XOPENEX 0.0.63 MG/3 UPD
[2018-03-08 10:11] VITALS: Ht 167.6 cm; Wt 137.0 kg
== END | disposition home or self-care (01) ==
LOC: D.FANS 08:33
DX: E66.01 Morbid (severe) obesity due to excess calories (principal)

== ENCOUNTER → 2018-03-20 19:30 | Outpatient (CLI) | payer MEDICARE ==
[2018-03-08 10:11] VITALS: BMI 48.7
== END | disposition home or self-care (01) ==
LOC: D.SLEEP 19:30
DX: G47.33 Obstructive sleep apnea (adult) (pediatric) (principal)

== ENCOUNTER → 2018-04-25 10:06 | Outpatient (CLI) | payer MEDICARE ==
[2018-03-08 10:11] VITALS: BMI 48.7
[2018-04-27 04:14] LABS: IGG SUBCLASS 1 477 mg/dL (248-810); IGG SUBCLASS 2 83 mg/dL (130-555); IGG SUBCLASS 3 47 mg/dL (15-102); IGG SUBCLASS 4 15 mg/dL (2-96); IMMUNOGLOBULIN G 639 mg/dL (700-1600)
== END | disposition home or self-care (01) ==
LOC: D.RT 04-18 10:00 → D.LAB 04-18 10:00 → D.RAD 04-18 10:00 → D.RT 04-18 10:45 → D.RAD 04-18 11:00 → D.LAB 04-18 11:15 → D.RT 10:06
PROVIDERS: Internal Medicine Pulmonary Disease
DX: J45.909 Unspecified asthma, uncomplicated (principal); Z87.01 Personal history of pneumonia (recurrent)

== ENCOUNTER → 2018-05-09 12:39 | Outpatient (CLI) | payer MEDICARE ==
[2018-03-08 10:11] VITALS: BMI 48.7
[~2018-05-09 12:39] MED LIST changes: +BARIATRIC MVI PO; +HYDROCODON-ACE1 EAC7 PO; +ZOFRAN ODT4 MG/UDTAB PO
== END | disposition home or self-care (01) ==
LOC: D.RAD 10:00
DX: E66.01 Morbid (severe) obesity due to excess calories (principal)

== ENCOUNTER 2018-05-17 08:18 | Day surgery (SDC) | payer MEDICARE ==
[~2018-05-17] VITALS: Ht 167.6 cm; Wt 137.7 kg
[~2018-05-17 08:18] MED LIST changes: -BARIATRIC MVI PO; -HYDROCODON-ACE1 EAC7 PO; -ZOFRAN ODT4 MG/UDTAB PO
[2018-05-17 08:45] LABS: BASOPHILS 0.6 % (0-2); EOSINOPHILS 4.6 % (0-7); HEMATOCRIT 44.5 % (36.0-48.0); HEMOGLOBIN 14.8 g/dL (12-16); IMMATURE GRANULOCYTES 0.5 % (0-5); LYMPHOCYTES 22.6 % (15-50); MCHC 33.3 g/dL (31.0-37.0); MCV 96.1 fL (80.0-100.0); MEAN PLATELET VOLUME 11.3 fL (7.4-10.4); MONOCYTES 12.3 % (2-11); NEUTROPHILS 59.4 % (40-80); PLATELET COUNT 241 10x3/uL (130-400); RBC 4.63 10x6/uL (4.00-5.40)
[2018-05-17 09:03] LABS: CALC OSMOLALITY 290 mosm/kg (275-300); CALCIUM 9.1 mg/dL (8.5-10.1); CARBON DIOXIDE 32.1 mmol/L (21.0-32.0); CHLORIDE - SERUM 106 mmol/L (98-107); CREATININE - SERUM 0.7 mg/dL (0.6-1.3); GLUCOSE 143 mg/dL (74-106); POTASSIUM - SERUM 4.1 mmol/L (3.5-5.1); SODIUM 145 mmol/L (136-145); UREA NITROGEN 13 mg/dL (7-18); eGFR NON AFRICAN AMERICAN 86 mL/min (90-120)
[2018-05-17 09:08] VITALS: Ht 167.6 cm; Wt 137.7 kg
== END 2018-05-17 12:45 | disposition home or self-care (01) ==
LOC: D.OPS 08:18
PROVIDERS: Anesthesiology
DX: K22.10 Ulcer of esophagus without bleeding (principal); K44.9 Diaphragmatic hernia without obstruction or gangrene; K29.00 Acute gastritis without bleeding; G47.33 Obstructive sleep apnea (adult) (pediatric); E66.01 Morbid (severe) obesity due to excess calories; Z68.42 Body mass index [BMI] 45.0-49.9, adult; J44.9 Chronic obstructive pulmonary disease, unspecified; K29.60 Other gastritis without bleeding

== ENCOUNTER → 2018-05-29 19:38 | Outpatient (CLI) | payer MEDICARE ==
[2018-05-17 09:08] VITALS: BMI 49.0
[~2018-05-29 19:38] MED LIST changes: +BARIATRIC MVI PO; +HYDROCODON-ACE1 EAC7 PO; +ZOFRAN ODT4 MG/UDTAB PO
== END | disposition home or self-care (01) ==
LOC: D.SLEEP 19:38
DX: G47.33 Obstructive sleep apnea (adult) (pediatric) (principal); Z01.812 Encounter for preprocedural laboratory examination

== ENCOUNTER 2018-06-19 08:30 | Inpatient (IN) | payer MEDICARE ==
[2018-06-16 11:06] LABS: HEMOGLOBIN 15.1 g/dL (12-16); MCH 31.9 pg (26.0-34.0); MCHC 33.6 g/dL (31.0-37.0); MCV 94.9 fL (80.0-100.0); MEAN PLATELET VOLUME 11.1 fL (7.4-10.4); RBC 4.74 10x6/uL (4.00-5.40); RDW 14.5 % (11.5-14.5); WBC 9.4 10x3/uL (4.8-10.8)
[~2018-06-19] VITALS: Ht 167.6 cm; Wt 137.3 kg
--- NOTE | ~2018-06-19 | DS ---
PATIENT:LAM VERA :[birth year] MEDICAL RECORD: [id number] DISCHARGE SUMMARY ADMISSION DATE: 06/19/18 DISCHARGE DATE: 06/21/18 DATE OF ADMISSION: 06/19/2018 DATE OF DISCHARGE: 06/21/2018 HOSPITAL COURSE: This is a 77-year-old female who was admitted to the hospital for an elective laparoscopic sleeve gastrectomy. The patient tolerated the procedure well and postoperatively was transferred to the floor in stable condition. Her postoperative course was without complication. She was started on a bariatric phase 1 liquid diet. On postoperative day #2, she underwent a Gastrografin swallow, which was within normal limits. She was then advanced to bariatric phase 2 liquid diet. At the time of discharge, the patient was ambulating independently. Her pain was well controlled on oral pain medicine. She was voiding without difficulty. DISCHARGE DIET: Bariatric phase 2 liquid diet for 2 weeks. DISCHARGE ACTIVITY: As tolerated, no strenuous activity or heavy lifting for 2 weeks. WOUND CARE: The patient may shower. No bath for 2 weeks. DISCHARGE CONDITION: Stable. DISCHARGE MEDICATIONS: Please see electronic medical record for a full list of discharge medications. TRANSINT:[id number] Voice Confirmation ID: [id number] DOCUMENT ID: [id number] TIFFANY GRIGSBY MD at 1254 CC: [id number] DICTATION DATE: 07/19/18 165 SENIOR NETWORK SYSTEMS ENGINEER: 07/19/18 1733 DIS IN 06/21/18 [address] [place] [address]
[~2018-06-19 08:30] MED LIST changes: -BARIATRIC MVI PO; -HYDROCODON-ACE1 EAC7 PO; -ZOFRAN ODT4 MG/UDTAB PO
[2018-06-19 09:48] VITALS: BP 140/58; BMI 49.0
[2018-06-19 15:46] VITALS: BP 144/74
[2018-06-19 15:54] VITALS: BP 144/74; Ht 167.6 cm; Wt 137.3 kg
[2018-06-19 21:46] VITALS: BP 139/67
[2018-06-20 04:56] LABS: HEMATOCRIT 41.9 % (36.0-48.0); HEMOGLOBIN 13.6 g/dL (12-16); MCH 31.4 pg (26.0-34.0); MCHC 32.5 g/dL (31.0-37.0); MCV 96.8 fL (80.0-100.0); MEAN PLATELET VOLUME 11.5 fL (7.4-10.4); PLATELET COUNT 184 10x3/uL (130-400); RBC 4.33 10x6/uL (4.00-5.40); RDW 14.4 % (11.5-14.5); WBC 22.3 10x3/uL (4.8-10.8)
[2018-06-20 05:11] LABS: ALBUMIN 2.9 g/dL (3.4-5.0); ALKALINE PHOSPHATASE 37 U/L (46-116); ALT (SGPT) 121 U/L (10-68); BILIRUBIN - TOTAL 0.61 mg/dL (0.2-1.3); CALC OSMOLALITY 278 mosm/kg (275-300); CALCIUM 7.5 mg/dL (8.5-10.1); CARBON DIOXIDE 29.9 mmol/L (21.0-32.0); CHLORIDE - SERUM 106 mmol/L (98-107); CREATININE - SERUM 0.7 mg/dL (0.6-1.3); GLUCOSE 135 mg/dL (74-106); POTASSIUM - SERUM 4.3 mmol/L (3.5-5.1); PROTEIN - SERUM 5.7 g/dL (6.4-8.2); SODIUM 140 mmol/L (136-145); UREA NITROGEN 6 mg/dL (7-18); eGFR NON AFRICAN AMERICAN 86 mL/min (90-120)
[2018-06-20 05:15] VITALS: BP 151/73
[2018-06-20 05:25] LABS: LYMPHOCYTES 6 % (15-50); MONOCYTES 1 % (2-11); NEUTROPHILS 79 % (40-80)
[2018-06-20 05:26] LABS: PLATELET ESTIMATE DECREASED
[2018-06-20 08:40] VITALS: BP 147/69
[2018-06-20 11:52] VITALS: BP 124/70
[2018-06-20 16:00] VITALS: BP 148/77
[2018-06-20 20:00] VITALS: BP 130/55
[2018-06-21 04:00] VITALS: BP 133/73
[2018-06-21 05:15] LABS: BASOPHILS 0.2 % (0-2); EOSINOPHILS 0.8 % (0-7); HEMATOCRIT 43.2 % (36.0-48.0); HEMOGLOBIN 13.9 g/dL (12-16); IMMATURE GRANULOCYTES 0.5 % (0-5); MCH 31.5 pg (26.0-34.0); MCHC 32.2 g/dL (31.0-37.0); MEAN PLATELET VOLUME 11.7 fL (7.4-10.4); NEUTROPHILS 77.5 % (40-80); PLATELET COUNT 208 10x3/uL (130-400); RBC 4.41 10x6/uL (4.00-5.40); RDW 14.6 % (11.5-14.5)
[2018-06-21 05:31] LABS: CALC OSMOLALITY 279 mosm/kg (275-300); CALCIUM 7.8 mg/dL (8.5-10.1); CARBON DIOXIDE 31.2 mmol/L (21.0-32.0); CHLORIDE - SERUM 103 mmol/L (98-107); CREATININE - SERUM 0.7 mg/dL (0.6-1.3); GLUCOSE 119 mg/dL (74-106); MAGNESIUM - SERUM 1.9 mg/dL (1.8-2.4); POTASSIUM - SERUM 3.7 mmol/L (3.5-5.1); SODIUM 141 mmol/L (136-145); UREA NITROGEN 6 mg/dL (7-18); eGFR NON AFRICAN AMERICAN 86 mL/min (90-120)
[2018-06-21 05:39] LABS: WBC 15.2 10x3/uL (4.8-10.8)
[2018-06-21 08:13] VITALS: BP 153/72
[2018-06-21] MEDS ORDERED: HYDROCODON-ACE1 EAC7 PO (09:29)
[2018-06-21] MEDS ORDERED: ZOFRAN ODT4 MG/UDTAB PO (09:29)
[2018-06-21] MEDS ORDERED: BARIATRIC MVI PO (09:30)
== END 2018-06-21 12:25 | disposition home or self-care (01) | DRG 620 ==
LOC: D.MS 08:30 → D.SDCHOLD 08:30 → D.MS 15:29
PROVIDERS: Anesthesiology; Surgery
PROC: 0DB64Z3 Excision of Stomach, Percutaneous Endoscopic Approach, Vertical (ICD-10-PCS; principal; 2018-06-19 11:00)
DX: E66.01 Morbid (severe) obesity due to excess calories (principal); J84.9 Interstitial pulmonary disease, unspecified; Z68.42 Body mass index [BMI] 45.0-49.9, adult; M06.9 Rheumatoid arthritis, unspecified; G47.33 Obstructive sleep apnea (adult) (pediatric); M19.90 Unspecified osteoarthritis, unspecified site; J44.9 Chronic obstructive pulmonary disease, unspecified

== ENCOUNTER → 2018-07-11 12:51 | Outpatient (CLI) | payer MEDICARE ==
[2018-06-19 15:54] VITALS: BMI 48.8
[~2018-07-11 12:51] MED LIST changes: +BARIATRIC MVI PO; +HYDROCODON-ACE1 EAC7 PO; +ZOFRAN ODT4 MG/UDTAB PO
== END | disposition home or self-care (01) ==
LOC: D.US 07-10 08:30
DX: R60.0 Localized edema (principal)

== ENCOUNTER → 2019-07-06 14:30 | Outpatient (CLI) | payer MEDICARE ==
[2018-06-19 15:54] VITALS: BMI 48.8
== END | disposition home or self-care (01) ==
LOC: D.MAMMO 13:30
PROVIDERS: ATTEND Family Medicine
DX: Z12.31 Encounter for screening mammogram for malignant neoplasm of breast (principal)

== ENCOUNTER 2019-09-07 15:51 | Inpatient (IN) | payer MEDICARE ==
[~2019-09-07] VITALS: Ht 165.1 cm; Wt 97.5 kg
[2019-09-07] MEDS ORDERED: FOLIC ACID1 MG PO (16:00)
[2019-09-07] MEDS ORDERED: OXYBUTYNIN CHLOR5 M1 PO (16:00)
[2019-09-07] MEDS ORDERED: PREDNISONE5 MG PO (16:00)
[2019-09-07 16:40] LABS: BASOPHILS 0.3 % (0-2); EOSINOPHILS 1.2 % (0-7); HEMATOCRIT 45.1 % (36.0-48.0); HEMOGLOBIN 14.8 g/dL (12-16); IMMATURE GRANULOCYTES 0.4 % (0-5); LYMPHOCYTES 8.5 % (15-50); MCH 31.6 pg (26.0-34.0); MCHC 32.8 g/dL (31.0-37.0); MCV 96.4 fL (80.0-100.0); MEAN PLATELET VOLUME 10.5 fL (7.4-10.4); MONOCYTES 8.9 % (2-11); NEUTROPHILS 80.7 % (40-80); PLATELET COUNT 225 10x3/uL (130-400); RBC 4.68 10x6/uL (4.00-5.40); RDW 14.7 % (11.5-14.5); WBC 13.6 10x3/uL (4.8-10.8)
[2019-09-07 16:49] LABS: APTT 25.6 SECONDS (22.8-39.4); CALC OSMOLALITY 276 mosm/kg (275-300); CALCIUM 8.5 mg/dL (8.5-10.1); CARBON DIOXIDE 30.1 mmol/L (21.0-32.0); CHLORIDE - SERUM 102 mmol/L (98-107); CREATININE - SERUM 0.6 mg/dL (0.6-1.3); GLUCOSE 111 mg/dL (74-106); INR 1.14 (0.85-1.17); POTASSIUM - SERUM 3.5 mmol/L (3.5-5.1); PROTIME 14.1 SECONDS (11.6-15.0); SODIUM 139 mmol/L (136-145); UREA NITROGEN 8 mg/dL (7-18); eGFR NON AFRICAN AMERICAN > 90 mL/min (90-120)
[2019-09-07 17:03] LABS: ALBUMIN 3.6 g/dL (3.4-5.0); ALKALINE PHOSPHATASE 62 U/L (46-116); ALT (SGPT) 24 U/L (10-68); BILIRUBIN - TOTAL 0.75 mg/dL (0.2-1.3); CKMB 0.5 U/L (0.0-3.6); CREATINE KINASE 60 UL (21-215); MAGNESIUM - SERUM 1.8 mg/dL (1.8-2.4); PROTEIN - SERUM 7.2 g/dL (6.4-8.2)
[2019-09-07 17:11] LABS: TROPONIN-I < 0.017 ng/mL (0.000-0.060)
--- NOTE | 2019-09-07 18:11 | NUR ---
REMOVED C-COLLAR PER POLLO VILLARREAL.
[2019-09-07 18:28] VITALS: BP 156/76
--- NOTE | 2019-09-07 20:41 | NUR ---
PT ARRIVED TO FLOOR FROM ER VIA STRETCHER. PT UNABLE TO TRANSFER SELF OR AMBULATE DUE TO BACK PAIN. REVIEWED HOME MEDS AND HISTORY. TELEMETRY AND SCD'S ON. ASSESSMENT COMPLETE PER FLOW-SHEET. NO OTHER NEEDS. WILL CONTINUE TO MONITOR.
[2019-09-08] VITALS (8 sets, daily range): BP systolic 116–150; BP diastolic 49–68; Ht 165.1 cm; Wt 97.5 kg
[2019-09-08] MEDS ORDERED: PREDNISONE5 MG PO (00:23)
[2019-09-08] MEDS ORDERED: METHOTREXATE2.5 MG PO (00:25)
[2019-09-08] MEDS ORDERED: LEUCOVORIN CALCI5 MG PO (00:27)
[2019-09-08] MEDS ORDERED: IPRAT-ALBUT 0.5-3 ML UPD (00:29)
[2019-09-08 05:26] LABS: BASOPHILS 0.5 % (0-2); HEMATOCRIT 40.7 % (36.0-48.0); HEMOGLOBIN 13.2 g/dL (12-16); IMMATURE GRANULOCYTES 0.2 % (0-5); LYMPHOCYTES 16.8 % (15-50); MCH 31.3 pg (26.0-34.0); MCHC 32.4 g/dL (31.0-37.0); MCV 96.4 fL (80.0-100.0); MEAN PLATELET VOLUME 11.1 fL (7.4-10.4); MONOCYTES 13.1 % (2-11); NEUTROPHILS 67.4 % (40-80); PLATELET COUNT 225 10x3/uL (130-400); RBC 4.22 10x6/uL (4.00-5.40); RDW 14.8 % (11.5-14.5)
[2019-09-08 05:32] LABS: WBC 9.9 10x3/uL (4.8-10.8)
[2019-09-08 05:56] LABS: CALC OSMOLALITY 278 mosm/kg (275-300); CALCIUM 8.1 mg/dL (8.5-10.1); CARBON DIOXIDE 30.1 mmol/L (21.0-32.0); CHLORIDE - SERUM 104 mmol/L (98-107); CREATININE - SERUM 0.6 mg/dL (0.6-1.3); GLUCOSE 105 mg/dL (74-106); MAGNESIUM - SERUM 1.9 mg/dL (1.8-2.4); PHOSPHOROUS 3.9 mg/dL (2.5-4.9); POTASSIUM - SERUM 3.6 mmol/L (3.5-5.1); PRO BNP 285 pg/mL (0-450); SODIUM 141 mmol/L (136-145); UREA NITROGEN 8 mg/dL (7-18); eGFR NON AFRICAN AMERICAN > 90 mL/min (90-120)
[2019-09-08 06:54] LABS: APPEARANCE CLEAR (CLEAR); BILIRUBIN NEGATIVE (NEGATIVE); COLOR YELLOW (YELLOW); GLUCOSE NEGATIVE (NEGATIVE); KETONE NEGATIVE (NEGATIVE); NITRITE NEGATIVE (NEGATIVE); PROTEIN NEGATIVE (NEGATIVE); UROBILINOGEN NORMAL (NORMAL)
[2019-09-08 06:55] LABS: BACTERIA FEW /hpf (NEGATIVE); EPITHELIAL CELLS OCC /hpf (0-5); RED CELLS - URINE OCC /hpf (0-5); WHITE CELLS - URINE 0-5 /hpf (NEGATIVE)
--- NOTE | 2019-09-08 07:37 | NUR ---
CALLED D-DIMER RESULTS TO KRISTAL DODGE. ORDERED CTA PE PROTOCOL. PT C/O NECK PAIN AND SWELLING (BACK OF NECK AT BASE OF SKULL) WITH HEADACHE, ALSO REPORTED TO DAR. DAR TO RELAY TO NAYELY WHO WILL BE ROUNDING ON PT.
--- NOTE | 2019-09-08 07:47 | NUR ---
PT RESTING IN BED WITH EYES CLOSED, EASILY AROUSED TO SPEECH. IV LOCATED TO LEFT FOREARM CURRENTLY RUNNING NS @ 50ML. PT STATES SHE HAS A HEADACHE AND FEELS LIKE SHE HAS SWELLING ON THE BACK OF HER HEAD/NECK AREA. LAB CALLED WITH DDIMER OF 3.05 NIGHT NURSE SHERRY FERNANDEZFIED LOT ATTENDANT KRISTAL DODGE. DENIES NEEDS AT THIS TIME, WILL CONT TO MONITOR.
--- NOTE | 2019-09-08 19:30 | NUR ---
PT LYING IN BED RESTING WITHOUT DISTRESS, AOX4. IV RIGHT HAND INFUSING NS @ 50. O2 2L/NC. SCDS ON. DENIES NEEDS. CL IN REACH, WILL CTM
--- NOTE | 2019-09-08 21:00 | NUR ---
PT STATES PAIN IN BACK AND NECK 07/10. GAVE MORPHINE ORDERED. DENIES OTHER NEEDS. CL IN REACH, WILL CTM
[2019-09-09] VITALS (7 sets, daily range): BP systolic 106–144; BP diastolic 57–71
[2019-09-09 05:17] LABS: BASOPHILS 0.1 % (0-2); EOSINOPHILS 0 % (0-7); HEMATOCRIT 41.7 % (36.0-48.0); HEMOGLOBIN 13.7 g/dL (12-16); IMMATURE GRANULOCYTES 0.2 % (0-5); LYMPHOCYTES 8.3 % (15-50); MCH 31.4 pg (26.0-34.0); MCHC 32.9 g/dL (31.0-37.0); MCV 95.4 fL (80.0-100.0); MEAN PLATELET VOLUME 10.8 fL (7.4-10.4); MONOCYTES 5.4 % (2-11); PLATELET COUNT 216 10x3/uL (130-400); RBC 4.37 10x6/uL (4.00-5.40); RDW 14.4 % (11.5-14.5); WBC 12.1 10x3/uL (4.8-10.8)
[2019-09-09 05:32] LABS: CALCIUM 8.4 mg/dL (8.5-10.1); CARBON DIOXIDE 25.7 mmol/L (21.0-32.0); CHLORIDE - SERUM 107 mmol/L (98-107); CREATININE - SERUM 0.5 mg/dL (0.6-1.3); PHOSPHOROUS 3.7 mg/dL (2.5-4.9); SODIUM 142 mmol/L (136-145); eGFR NON AFRICAN AMERICAN > 90 mL/min (90-120)
[2019-09-09 05:35] LABS: CALC OSMOLALITY 284 mosm/kg (275-300); GLUCOSE 153 mg/dL (74-106); POTASSIUM - SERUM 4.6 mmol/L (3.5-5.1); UREA NITROGEN 11 mg/dL (7-18)
--- NOTE | 2019-09-09 09:00 | NUR ---
alerrt and oriented with 02 2l n/c. NON PRODUCTIVE COUGH WITH DIMINISHED BREATH SOUNDS X4 Anterior. CAP REFILL <3 SEC. ENCOURAGED TO GET UP WITH ASSIST. SCD'S INTACT TO BLE. IV INTACT TO RT. HAND AND INFUSING AT PRESCRIBED RATE. DENIES ANY PAIN OR DISCOMFORT AT THIS TIME. ENCOURAGED TO USE CALL LIGHT FOR ASSSIT.
--- NOTE | 2019-09-09 19:00 | NUR ---
BEDSIDE REPORT RECEIVED AND CARE OF PT ASSUMED. PT LYING IN SUPINE POSITION WATCHING TV. IV TO RIGHT HAND PATENT WITH NS INFUSINGA T 50 ML/HR. TELEMETRY IN PLACE PER ORDER AND READING 82 SR AT THIS ASSESSMENT. WILL MONITOR FOR NEEDS.
--- NOTE | 2019-09-09 20:55 | NUR ---
HS MEDICATIONS GIVEN TO INCLUDE MORPHINE 4 MG IVP PER PT REQUEST FOR PAIN. WILL MONITOR FOR EFFECTIVENESS.
--- NOTE | 2019-09-09 22:40 | NUR ---
PT RESTING IN SUPINE POSITION TALKING ON THE PHONE. WILL CONTINUE TO MONITOR FOR NEEDS.
[2019-09-10 00:52] VITALS: BP 119/77
[2019-09-10 05:19] VITALS: BP 156/70
[2019-09-10 05:52] LABS: BASOPHILS 0.1 % (0-2); EOSINOPHILS 0 % (0-7); HEMATOCRIT 40.8 % (36.0-48.0); HEMOGLOBIN 13.4 g/dL (12-16); IMMATURE GRANULOCYTES 0.4 % (0-5); LYMPHOCYTES 9.3 % (15-50); MCH 31.1 pg (26.0-34.0); MCHC 32.8 g/dL (31.0-37.0); MCV 94.7 fL (80.0-100.0); MEAN PLATELET VOLUME 11.2 fL (7.4-10.4); MONOCYTES 6.9 % (2-11); NEUTROPHILS 83.3 % (40-80); PLATELET COUNT 259 10x3/uL (130-400); RBC 4.31 10x6/uL (4.00-5.40); RDW 14.4 % (11.5-14.5); WBC 11.8 10x3/uL (4.8-10.8)
[2019-09-10 06:20] LABS: CALC OSMOLALITY 287 mosm/kg (275-300); CALCIUM 8.3 mg/dL (8.5-10.1); CARBON DIOXIDE 25.9 mmol/L (21.0-32.0); CHLORIDE - SERUM 107 mmol/L (98-107); CREATININE - SERUM 0.6 mg/dL (0.6-1.3); GLUCOSE 172 mg/dL (74-106); PHOSPHOROUS 3.2 mg/dL (2.5-4.9); POTASSIUM - SERUM 4.5 mmol/L (3.5-5.1); SODIUM 142 mmol/L (136-145); eGFR NON AFRICAN AMERICAN > 90 mL/min (90-120)
[2019-09-10 06:22] LABS: UREA NITROGEN 16 mg/dL (7-18)
--- NOTE | 2019-09-10 07:42 | NUR ---
ALERT AND ORIENTED. LUNGS DIMINISHED TO BLL. HEART SOUNDS S1 AND S2 HEARD IN ALL BERGER. TELEMETRY IN PLACE. BOWEL SOUNDS ACTIVE X 4. SKIN INTACT WITHOUT REDNESS. IV TO RIGHT HAND PATENT WITHOUT REDNESS. O2 IN PLACE AT 2L. PATIENT USES PRN. DENIES NEEDS. BED LOW. CALL SCHNEIDER AND PERSONAL ITEMS IN REACH. WILL CONTINUE TO MONITOR.
[2019-09-10 07:59] VITALS: BP 122/85
--- NOTE | 2019-09-10 09:22 | NUR ---
REQUESTING TO SPEAK WITH WAFER FABRICATOR. WAFER FABRICATORFADIA HUNG.
--- NOTE | 2019-09-10 12:31 | NUR ---
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 KRISTAL SHAH NOTIFIED. STATES NOTIFY HALLEY MENESES. [facility] NOTIFIED AND SPEAKING WITH PATIENT.
--- NOTE | 2019-09-10 12:37 | MORECARE ---
CASE MANAGEMENT DISCHARGE SUMMARY PATIENT: LAM VERA UNIT: [id number] ADM DATE: 09/07/19 AGE: 78 : 42 SEX: F ROOM/BED: D.[facility]7 AUTHOR: JUAQUIN QUINTANA PHYSICIAN: REFERRING PHYSICIAN: MARTINE CAMARILLO MD DATE OF SERVICE: 09/10/19 Discharge Plan Patient Name: LAM VERA Facility: [facility]:[place] : 1940 Planned Disposition: Inpatient Rehab Anticipated Discharge Date: 09/10/19 Discharge Date: Expected LOS: 3 Initial Reviewer: [email or web address] Initial Review Date: 09/10/2019 Generated: 09/10/19 1:36 pm DCPIA - Discharge Planning Initial Assessment Updated by [email or web address]: Karie Norwood on 09/10/19 12:34 pm * Is the patient Alert and Oriented? Yes * How many steps to enter\exit or inside your home? 3/0 * PCP Dr. Kim * [facility] * Preadmission Environment Home with Family * ADLs Partial Dependent * Partial ADLs (Assistance needed) Ambulation * Equipment Walker * List name and contact numbers for known caregivers / representatives who currently or will assist patient after discharge: Jase wille - [phone] * Verbal permission to speak to the caregivers and representatives has been obtained from the patient. Yes * Community resources currently utilized None * Additional services required to return to the preadmission environment? Yes * Can the patient safely return to the preadmission environment? Yes * Has this patient been hospitalized within the prior 30 days at any hospital? No Coverage Notice Reviewer: [id number] - Karie Norwood Notice Issued Date-Time: 09/10/2019 12:31 Notice Type: IM Discharge Notice Notice Delivered To: Patient Relationship to Patient: Self Musical Therapist Name: Delivery Method: HAND - Hand Delivered Winnie Days: Prior Verbal Notification: Recipient Understood Notice: Yes Recipient Signature: Yes Med Rec Note Co-signed by Attending: Coverage Notice Comment: IMM explained, signed, ,given, copy placed in MR Patient Name: LAM VERA Page [id number] at 1237 All edits/amendments must be made on the electronic document DICTATION DATE: 09/10/19 1236 DATA COMPILER: AURELIA 09/10/19 1236 RPT#: [id number] DC DATE: STATUS: ADM IN [facility] [address] [place] [address] END OF REPORT
--- NOTE | 2019-09-10 12:47 | MORECARE ---
CASE MANAGEMENT DISCHARGE SUMMARY PATIENT: LAM VERA UNIT: [id number] ADM DATE: 09/07/19 AGE: 78 : 42 SEX: F ROOM/BED: D.2227 AUTHOR: LILIAN,DOC PHYSICIAN: REFERRING PHYSICIAN: MARTINE CAMARILLO MD DATE OF SERVICE: 09/10/19 Discharge Plan Patient Name: LAM VERA Facility: [facility]:[place] : 1940 Planned Disposition: Inpatient Rehab Anticipated Discharge Date: 09/10/19 Discharge Date: Expected LOS: 3 Initial Reviewer: [email or web address] Initial Review Date: 09/10/2019 Generated: 09/10/19 1:46 pm Comments DCP- Discharge Planning Updated by [id number]: Karie Norwood on 09/10/19 11:[address] Patient Name: LAM VERA Admission Status: ER Accout number: [id number] Admission Date: 09-07-2019 : 1940 Admission Diagnosis: Attending: MARTINE CAMARILLO Current LOS: 3 Anticipated DC Date: 09-10-2019 Planned Disposition: Inpatient Rehab Primary Insurance: MEDICARE A & B Discharge Planning Comments: Received discharge orders. Met with patient, she states she does not feel safe to go home. 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 States that her son has been coming in to stay the night with her while she is hospitalized. States she feels like she is not strong enough to return home. States she would like a referral to inpatient rehab at [facility]. She also would like a walker with a seat prior to discharging from inpatient rehab if she is accepted. I called Anali in inpatient rehab and sent order for referral. CM will continue to follow and assist with discharge planning/needs. Clutch Inspector: Karie Norwood DCPIA - Discharge Planning Initial Assessment Updated by [email or web address]: Karie Norwood on 09/10/19 12:34 pm * Is the patient Alert and Oriented? Yes * How many steps to enter\exit or inside your home? 3/0 * PCP Dr. Kim * [facility] in [place] * Preadmission Environment Home with Family * ADLs Partial Dependent * Partial ADLs (Assistance needed) Ambulation * Equipment Walker * List name and contact numbers for known caregivers / representatives who currently or will assist patient after discharge: Jase [facility] - [phone] * Verbal permission to speak to the caregivers and representatives has been obtained from the patient. Yes * Community resources currently utilized None * Additional services required to return to the preadmission environment? Yes * Can the patient safely return to the preadmission environment? Yes * Has this patient been hospitalized within the prior 30 days at any hospital? No Coverage Notice Reviewer: [id number] Kalli Norwood Notice Issued Date-Time: 09/10/2019 12:31 Notice Type: IM Discharge Notice Notice Delivered To: Patient Relationship to Patient: Self Director Instrumentation Name: Delivery Method: HAND - Hand Delivered Winnie Days: Prior Verbal Notification: Recipient Understood Notice: Yes Recipient Signature: Yes Med Rec Note Co-signed by Attending: Coverage Notice Comment: IMM explained, signed, ,given, copy placed in MR Last DP export: 09/10/19 11:37 Patient Name: LAM VERA Page [id number] at 1247 All edits/amendments must be made on the electronic document DICTATION DATE: 09/10/191245 COPYMAN: AURELIA 09/10/19 124 RPT#: [id number] DC DATE: STATUS: ADM IN [facility] [address] [place] [address] END OF REPORT
[2019-09-10 12:50] VITALS: BP 130/55
--- NOTE | 2019-09-10 13:44 | NUR ---
NO BM YET AFTER DULCOLAX SUPPOSITORIES. N/O COLACE. COLACE GIVEN. WILL CONTINUE TO MONITOR.
--- NOTE | 2019-09-10 14:21 | NUR ---
ASSISTED TO BATHROOM.
--- NOTE | 2019-09-10 14:26 | NUR ---
Rehab Note- Acute Inpatient Rehab prescreen order received. THe patient is a good inpatient acute rehab candidate. Will accept to [facility] Acute Inpatient REhab whe medically stable and ready for discharge from the acute hospital. Thank you for this referral! Anali Ren RN Clinical Liaison, [facility] Rehab
--- NOTE | 2019-09-10 15:16 | NUR ---
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 Pt wanted small portions and increased protein, nonstarchy vegetables. RDN ordered small portions and showed pt how to make food selections.
--- NOTE | 2019-09-10 15:28 | MORECARE ---
CASE MANAGEMENT DISCHARGE SUMMARY PATIENT: LAM VERA UNIT: [id number] ADM DATE: 09/07/19 AGE: 78 : 42 SEX: F ROOM/BED: D.2227 AUTHOR: LILIAN,DOC PHYSICIAN: REFERRING PHYSICIAN: MARTINE CAMARILLO MD DATE OF SERVICE: 09/10/19 Discharge Plan Patient Name: LAM VERA Facility: [facility]:[place] : 1940 Planned Disposition: Inpatient Rehab Anticipated Discharge Date: 09/10/19 Discharge Date: Expected LOS: 3 Initial Reviewer: [id number] Initial Review Date: 09/10/2019 Generated: 09/10/19 4:28 pm Comments DCP- Discharge Planning Updated by [email or web address]: Karie Norwood on 09/10/19 2:[address] [facility] states they will accept patient today to inpatient rehab. CM will continue to follow and assist with discharge planning/needs. DCP- Discharge Planning Updated by [id number]: Karie Norwood on 09/10/19 11:[address] Patient Name: LAM VERA Admission Status: ER Accout number: [id number] Admission Date: 09-07-2019 : 1940 Admission Diagnosis: Attending: MARTINE CAMARILLO Current LOS: 3 Anticipated DC Date: 09-10-2019 Planned Disposition: Inpatient Rehab Primary Insurance: MEDICARE A & B Discharge Planning Comments: Received discharge orders. Met with patient, she states she does not feel safe to go home. 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 States that her son has been coming in to stay the night with her while she is hospitalized. States she feels like she is not strong enough to return home. States she would like a referral to inpatient rehab at [facility]. She also would like a walker with a seat prior to discharging from inpatient rehab if she is accepted. I called Anali in inpatient rehab and sent order for referral. CM will continue to follow and assist with discharge planning/needs. Senior Sales Compensation Analyst: Karie Norwood DCPIA - Discharge Planning Initial Assessment Updated by [id number]: Karie Norwood on 09/10/19 12:34 pm * Is the patient Alert and Oriented? Yes * How many steps to enter\exit or inside your home? 3/0 * PCP Dr. Kim * Pharm[facility] in [facility] * Preadmission Environment Home with Family * ADLs Partial Dependent * Partial ADLs (Assistance needed) Ambulation * Equipment Walker * List name and contact numbers for known caregivers / representatives who currently or will assist patient after discharge: Jase [facility] - [phone] * Verbal permission to speak to the caregivers and representatives has been obtained from the patient. Yes * Community resources currently utilized None * Additional services required to return to the preadmission environment? Yes * Can the patient safely return to the preadmission environment? Yes * Has this patient been hospitalized within the prior 30 days at any hospital? No Coverage Notice Reviewer: [id number] - Karie Norwood Notice Issued Date-Time: 09/10/2019 12:31 Notice Type: IM Discharge Notice Notice Delivered To: Patient Relationship to Patient: Self Kit Planner Name: Delivery Method: HAND - Hand Delivered Winnie Days: Prior Verbal Notification: Recipient Understood Notice: Yes Recipient Signature: Yes Med Rec Note Co-signed by Attending: Coverage Notice Comment: IMM explained, signed, ,given, copy placed in MR Last DP export: 09/10/19 11:47 Patient Name: LAM VERA Page [id number] at 1528 All edits/amendments must be made on the electronic document DICTATION DATE: 09/10/191527 EXHIBIT CARPENTER: AURELIA 09/10/191527 RPT#: [id number] DC DATE: STATUS: ADM IN [facility] [address] [place] [address] END OF REPORT
--- NOTE | 2019-09-10 15:39 | NUR ---
STILL NO BM. DRINKING PRUNE JUICE AND COFFEE PER REQUEST. SCHEDULED MIRALAX GIVEN. DENIES FURTHER NEEDS. FAMILY AT BEDSIDE.
[2019-09-10] MEDS ORDERED: ACETAMINOPHEN325 MG PO (15:40)
[2019-09-10] MEDS ORDERED: ROBAXIN500 MG PO (15:40)
[2019-09-10] MEDS ORDERED: LOVENOX40 MG/0.4 SC (15:40)
[2019-09-10] MEDS ORDERED: IPRAT-ALBUT 0.5-3 ML UPD (15:40)
[2019-09-10] MEDS ORDERED: BROVANA15 MCG/2 M INH (15:40)
[2019-09-10] MEDS ORDERED: PROTONIX40 MG PO (15:41)
[2019-09-10] MEDS ORDERED: FLORAJEN3 CAPS460 MG PO (15:41)
[2019-09-10] MEDS ORDERED: SOLU-MEDRO40 MG/1 M1 IV (15:41)
[2019-09-10] MEDS ORDERED: TESSALON PERLE100 MG PO (15:41)
[2019-09-10] MEDS ORDERED: MIRALAX17 GM PO (15:41)
[2019-09-10] MEDS ORDERED: COLACE100 MG PO (15:41)
[2019-09-10] MEDS ORDERED: MUCINEX600 MG PO (15:41)
[2019-09-10] MEDS ORDERED: ZITHROMAX 500M500 MG IV (15:42)
[2019-09-10] MEDS ORDERED: ROCEPHIN 1 GM/D51 G1 IV (15:42)
[2019-09-10] MEDS ORDERED: PULMICORT0.5 MG/21 UPD (15:42)
[2019-09-10 16:08] VITALS: BP 134/78
--- NOTE | 2019-09-10 16:54 | NUR ---
ASSISTED TO BATHROOM. SMALL BM NOTED.
--- NOTE | 2019-09-10 16:57 | NUR ---
REPORT CALLED TO [facility] IN REHAB. DENIES FURTHER QUESTIONS.
--- NOTE | 2019-09-10 17:05 | NUR ---
DISCHARGE EDUCATION PROVIDED BOTH WRITTEN AND VERBAL. VERBALIZED UNDERSTANDING. DENIES FURTHER QUESTIONS. IV REMOVED FROM RIGHT HAND WITH TIP INTACT. PATIENT DISCHARGED TO REHAB WITH ALL BELONGINGS.
--- NOTE | 2019-09-11 07:19 | MORECARE ---
CASE MANAGEMENT DISCHARGE SUMMARY PATIENT: LAM VERA UNIT: [id number] ADM DATE: 09/07/19 AGE: 78 : 42 SEX: F ROOM/BED: D.2227 AUTHOR: LILIAN,DOC PHYSICIAN: REFERRING PHYSICIAN: MARTINE CAMARILLO MD DATE OF SERVICE: 09/11/19 Discharge Plan Patient Name: LAM VERA Facility: [facility]:[place] : 1940 Planned Disposition: Inpatient Rehab Anticipated Discharge Date: 09/10/19 Discharge Date: 09/10/2019 Expected LOS: 3 Initial Reviewer: [email or web address] Initial Review Date: 09/10/2019 Generated: 09/11/19 8:18 am Comments DCP- Discharge Planning Updated by [id number]: Karie Norwood on 09/10/19 2:[address] [facility] states they will accept patient today to inpatient rehab. CM will continue to follow and assist with discharge planning/needs. DCP- Discharge Planning Updated by [email or web address]: Karie Norwood on 09/10/19 11:[address] Patient Name: LAM VERA Admission Status: ER Accout number: [id number] Admission Date: 09-07-2019 : 1940 Admission Diagnosis: Attending: MARTINE CAMARILLO Current LOS: 3 Anticipated DC Date: 09-10-2019 Planned Disposition: Inpatient Rehab Primary Insurance: MEDICARE A & B Discharge Planning Comments: Received discharge orders. Met with patient, she states she does not feel safe to go home. 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 States that her son has been coming in to stay the night with her while she is hospitalized. States she feels like she is not strong enough to return home. States she would like a referral to inpatient rehab at [facility]. She also would like a walker with a seat prior to discharging from inpatient rehab if she is accepted. I called Anali in inpatient rehab and sent order for referral. CM will continue to follow and assist with discharge planning/needs. On Awake Counselor: Karie Norwood DCPIA - Discharge Planning Initial Assessment Updated by [id number]: Karie Loraell on 09/10/19 12:34 pm * Is the patient Alert and Oriented? Yes * How many steps to enter\exit or inside your home? 3/0 * PCP Dr. Kim * Pharm[facility] in [facility] * Preadmission Environment Home with Family * ADLs Partial Dependent * Partial ADLs (Assistance needed) Ambulation * Equipment Walker * List name and contact numbers for known caregivers / representatives who currently or will assist patient after discharge: Jase [facility] - [phone] * Verbal permission to speak to the caregivers and representatives has been obtained from the patient. Yes * Community resources currently utilized None * Additional services required to return to the preadmission environment? Yes * Can the patient safely return to the preadmission environment? Yes * Has this patient been hospitalized within the prior 30 days at any hospital? No Coverage Notice Reviewer: [id number] - Karie Norwood Notice Issued Date-Time: 09/10/2019 12:31 Notice Type: IM Discharge Notice Notice Delivered To: Patient Relationship to Patient: Self Fairing Worker Name: Delivery Method: HAND - Hand Delivered Winnie Days: Prior Verbal Notification: Recipient Understood Notice: Yes Recipient Signature: Yes Med Rec Note Co-signed by Attending: Coverage Notice Comment: IMM explained, signed, ,given, copy placed in MR Last DP export: 09/10/19 2:28 Patient Name: LAM VERA Page 97929 at 0719 All edits/amendments must be made on the electronic document DICTATION DATE: 09/11/19717 WAIVER ANALYST: AURELIA 09/11/19717 RPT#: [id number] DC DATE:09/10/19 STATUS: DIS IN [facility] [address] [place] [address] END OF REPORT
--- NOTE | 2019-09-24 13:55 | CN ---
PATIENT NAME:LAM VERA MEDICAL RECORD: [id number] : 44 LOCATION:[facility] ADMIT DATE: 09/07/19 ACCOUNT: [id number] CONSULTING PHYSICIAN: PATRICIA RITCHIE MD REFERRING PHYSICIAN: JUN SNOWDEN MD DATE OF CONSULTATION: 09/08/2019 CONSULT REQUESTING PHYSICIAN: Jun Snowden MD REASON FOR CONSULTATION: Acute asthma, COPD exacerbation. HISTORY OF PRESENT ILLNESS: Ms. Vera is a 78-year-old female, who has a history of COPD. She is sick since Tuesday. She has hoarseness. She is coughing. She is wheezing. She has worsening shortness of breath. The patient came into the ER, admitted with acute exacerbation of COPD. Now, she is feeling a little bit better. REVIEW OF SYSTEMS: Mainly in the history of present illness. PAST MEDICAL HISTORY: 1. COPD. 2. Asthma. 3. History of tracheomalacia. 4. Obstructive sleep apnea. 5. Mild pulmonary arterial hypertension. 6. Rheumatoid arthritis. 7. Selective immunoglobulin G deficiency. The last level was 639. PAST SURGICAL HISTORY: 1. Cholecystectomy. 2. Knee surgery. 3. Appendectomy. 4. Hysterectomy. ALLERGIES: No known drug allergy. MEDICATIONS: [employer] is reviewed. PERSONAL AND SOCIAL HISTORY: The patient is an ex-smoker. She is a nondrinker. FAMILY HISTORY: Significant for diabetes and cancer. PHYSICAL EXAMINATION: GENERAL: Now, the patient is lying comfortably in bed. She is not in acute distress. VITAL SIGNS: The blood pressure is 144/67, pulse is 87, respiration is 19, temperature 98.4, and SPO2 is 92% on room air. HEENT: Conjunctivae pink. Sclerae not icteric. NECK: Supple. No JVD. CHEST: The chest excursion is minimal on both sides. Prolonged expiration with wheezing. HEART: Rhythm regular, normal sound, no murmur. ABDOMEN: Abdomen is soft. Bowel sounds present. No hepatosplenomegaly. RECTAL: Deferred. EXTREMITIES: No cyanosis, no clubbing, no pedal edema. CONSULT REPORT [id number] LAM VERA CENTRAL NERVOUS SYSTEM: The patient is awake and alert. There are no obvious cranial nerve abnormalities. The gait was not tested. LABORATORY DATA: CBC: WBC 13.6, hemoglobin 14.8, hematocrit 45.1, the platelet count 225. Chemistry: Sodium 141, potassium 3.6, BUN is 8, creatinine 0.6. D-dimer was 3.05. IMAGING: CTA of the chest negative for pulmonary embolism. There is a dependent atelectasis. No consolidation as such. IMPRESSION: 1. Acute exacerbation of chronic obstructive pulmonary disease and asthma. 2. Tracheobronchitis. 3. Obstructive sleep apnea. 4. Adult bronchiectasis. 5. Tracheomalacia. 6. Selective IgG deficiency. RECOMMENDATION: 1. Continue empiric Rocephin and Zithromax. 2. Albuterol/ipratropium nebulizer. 3. Singulair 10 mg daily. 4. Brovana, budesonide nebulizer. 5. Start methylprednisolone IV. 6. Follow up labs and chest radiograph. 7. Dr. Rodriguez is consulted for the backache. Dr. Snowden, thank you for involving me in the care of Ms. Vera. TRANSINT:[id number] Voice Confirmation ID: [id number] DOCUMENT ID: [id number] PATRICIA RITCHIE MD at 1355 CC: [id number] DICTATION DATE: 09/08/19 1155 HELMET HAT PUNCHER: 09/08/19 1242 DIS IN 09/10/19 [facility] [address] [place] [address]
== END 2019-09-10 17:18 | DRG 191 ==
LOC: D.ER 15:51 → D.MS 18:01
PROVIDERS: Family Medicine; ADMIT Internal Medicine Nephrology; ATTEND Internal Medicine Nephrology
DX: J47.1 Bronchiectasis with (acute) exacerbation (principal); S32.018A Other fracture of first lumbar vertebra, initial encounter for closed fracture; D80.3 Selective deficiency of immunoglobulin G [IgG] subclasses; I50.30 Unspecified diastolic (congestive) heart failure; J18.1 Lobar pneumonia, unspecified organism; J47.0 Bronchiectasis with acute lower respiratory infection; W19.XXXA Unspecified fall, initial encounter; Y92.009 Unspecified place in unspecified non-institutional (private) residence as the place of occurrence of the external cause; R55 Syncope and collapse; M06.9 Rheumatoid arthritis, unspecified; M79.7 Fibromyalgia; G47.33 Obstructive sleep apnea (adult) (pediatric); E66.9 Obesity, unspecified; Z68.35 Body mass index [BMI] 35.0-35.9, adult; I25.10 Atherosclerotic heart disease of native coronary artery without angina pectoris; K57.90 Diverticulosis of intestine, part unspecified, without perforation or abscess without bleeding; N20.0 Calculus of kidney; M81.0 Age-related osteoporosis without current pathological fracture; I27.20 Pulmonary hypertension, unspecified; J39.8 Other specified diseases of upper respiratory tract

== ENCOUNTER 2019-09-10 17:45 | Inpatient (IN) | payer MEDICARE ==
[~2019-09-10] VITALS: Ht 165.1 cm; Wt 95.3 kg
[~2019-09-10 17:45] MED LIST changes: +ACETAMINOPHEN325 MG PO; +BROVANA15 MCG/2 M INH; +FLORAJEN3 CAPS460 MG PO; +LOVENOX40 MG/0.4 SC; +MUCINEX600 MG PO; +OXYBUTYNIN CHLOR5 M1 PO; +PROTONIX40 MG PO; +ROBAXIN500 MG PO; +ROCEPHIN 1 GM/D51 G1 IV; +SOLU-MEDRO40 MG/1 M1 IV; +TESSALON PERLE100 MG PO; +ZITHROMAX 500M500 MG IV
--- NOTE | 2019-09-10 19:57 | NUR ---
IV STARTED IN RFA WITH 22G CATH USING STERILE TECHNIQUE. SITE SECURED WITH TAPE AND OPSITE. FLUSHED EASILY WITH NS. CONVERTED TO SALINE LOCK.
[2019-09-10 21:12] VITALS: BP 140/71
[2019-09-10 21:16] VITALS: BP 140/71; BMI 35.0
--- NOTE | 2019-09-10 21:52 | NUR ---
PT IS RESTING IN BED WITH EYES OPEN. ALERT AND ORIENTED X 3. VOICED COMPLAINT OF BACK PAIN LEVEL OF 7 AT THIS TIME. PT VOICED A HISTORY OF A GASTRIC SLEEVE, AND STATES SHE CANNOT USE STRAWS, OR ICE IN HER DRINKS. SHE STATES SHE IS SUPPOSED TO GET A KYPHOPLASTY DONE WHEN HER INFECTIONS CLEAR UP. SR'S ARE UP X 2 IN BED. CALL LIGHT AND BEDSIDE TABLE ARE WITHIN EASY REACH.
--- NOTE | 2019-09-11 00:17 | NUR ---
RESTING IN BED WITH EYES CLOSED.
--- NOTE | 2019-09-11 00:56 | NUR ---
QUIET HOURS. PT LYING IN BED ON LEFT SIDE EYES CLOSED RESTING. RR EVEN AND UNLABORED. CL IN REACH.
--- NOTE | 2019-09-11 03:34 | NUR ---
I have reviewed this patient and I concur with the Shift Assessment completed by the Licensed Practical Nurse today this shift.
--- NOTE | 2019-09-11 04:34 | NUR ---
PT IS RESTING QUIETLY IN BED WITH EYES CLOSED. RESPS ARE EVEN AND UNLABORED. NO ACUTE DISTRESS NOTED.
[2019-09-11 06:00] LABS: BASOPHILS 0 % (0-2); EOSINOPHILS 0 % (0-7); HEMOGLOBIN 13.5 g/dL (12-16); IMMATURE GRANULOCYTES 0.4 % (0-5); MCH 30.9 pg (26.0-34.0); MCHC 32.9 g/dL (31.0-37.0); MCV 93.8 fL (80.0-100.0); MEAN PLATELET VOLUME 11.1 fL (7.4-10.4); MONOCYTES 12.5 % (2-11); NEUTROPHILS 74.1 % (40-80); PLATELET COUNT 267 10x3/uL (130-400); RBC 4.37 10x6/uL (4.00-5.40); RDW 14.3 % (11.5-14.5); WBC 9.4 10x3/uL (4.8-10.8)
[2019-09-11 06:24] LABS: CALC OSMOLALITY 282 mosm/kg (275-300); CALCIUM 8.6 mg/dL (8.5-10.1); CARBON DIOXIDE 25.1 mmol/L (21.0-32.0); CHLORIDE - SERUM 105 mmol/L (98-107); CREATININE - SERUM 0.6 mg/dL (0.6-1.3); GLUCOSE 132 mg/dL (74-106); POTASSIUM - SERUM 4.3 mmol/L (3.5-5.1); SODIUM 140 mmol/L (136-145); UREA NITROGEN 17 mg/dL (7-18); eGFR NON AFRICAN AMERICAN > 90 mL/min (90-120)
--- NOTE | 2019-09-11 08:00 | NUR ---
BREAKFAST GIVEN.EXPLAINED FALL PRECAUTIONS AND TO USE CL FOR ASSISTANCE.STATES SHE WILL NOT WAIT FOR SOMEONE TO ANSWER CL.D/T URGE TO URINATE OR HAVE BM.REFUSES TO SIGN AN ALARM WAIVER.DOES NOT REQUIRE A DEVICE TO AMB.
[2019-09-11 08:27] VITALS: BP 175/80
--- NOTE | 2019-09-11 09:30 | NUR ---
AMBULATED 325FT WITH THERAPY.REQUEST SIDE RAIL TO BE LEFT DOWN.EXPLAINED THAT HOSPITAL WILL HAVE TO CONTINUE TO FOLLOW FALL PRECAUTION PROTOCOL.
[2019-09-11 14:50] VITALS: Ht 165.1 cm; Wt 95.3 kg
--- NOTE | 2019-09-11 16:00 | NUR ---
alarm waiver form signed.
--- NOTE | 2019-09-11 19:25 | NUR ---
PT LYING IN BED WATCHING TV. CL IN REACH. DENIES NEEDS AT THIS TIME. BED IN LOW SIDE RAILS X2. A/O X4. BED ALARM WAIVER ON FILE. PRODUCTIVE COUGH PRESENT. BOWEL ACTIVE X4. RIGHT FOREARM IV INTACT. WILL CONTINUE TO MONITOR.
--- NOTE | 2019-09-12 02:00 | NUR ---
PT RESTING QUIETLY. CL IN REACH. NO DISTRESS NOTED. WILL CONTINUE TO MONITOR.
--- NOTE | 2019-09-12 08:00 | NUR ---
BREAKFAST GIVEN.INDEPENDENT IN ROOM.
[2019-09-12 08:34] VITALS: BP 144/72
--- NOTE | 2019-09-12 10:09 | NUR ---
NUTRITION F/U SPOKE WITH PT RE:FOOD PREFERENCES. CHANGED DIET TO REFLECT REG PORTIONS. RD FOLLOWING
--- NOTE | 2019-09-12 11:00 | NUR ---
PATIENT ADMITTED TO REHAB FROM ACUTE FLOOR. DR. CARLOS IS HER PCP AND DME AT HOME IS A ROLLING WALKER. DISCHARGE PLANS ARE FOR HER TO RETURN TO HER HOME. WILL CONTINUE TO FOLLOW WITH PATIENT.
--- NOTE | 2019-09-12 12:00 | NUR ---
ORDERED OUT [facility] FOR LUNCH.HAD FRIEND TO BRING.
--- NOTE | 2019-09-12 19:25 | NUR ---
PT LYING IN BED WATCHING TV. CL IN REACH. DENIES NEEDS AT THIS TIME. BED IN LOW SIDE RAILS X2. A/O X4. LUNGS WHEEZY EXHALATION. BOWEL ACTIVE X4. RESP EVEN AND UNLABORED. WILL CONTINUE TO MONITOR.
[2019-09-12 21:00] VITALS: BP 108/69
--- NOTE | 2019-09-12 23:28 | NUR ---
QUIET HOURS. PT LYING IN BED ON LEFT SIDE WATCHING TV. DENIES ANY NEEDS OR PAIN. NO SIGNS OF ACUTE DISTRESS NOTED. CL IN REACH.
--- NOTE | 2019-09-13 02:30 | NUR ---
PT RESTING QUIETLY. CL IN REACH. NO DISTRESS NOTED. WCTM
--- NOTE | 2019-09-13 02:32 | NUR ---
I have reviewed this patient and I concur with the Shift Assessment completed by the Licensed Practical Nurse today this shift.
--- NOTE | 2019-09-13 06:21 | NUR ---
PT C/O INDEGESTION GAVE 2 TUMS WELL MILK PER PT REQUESTS.
[2019-09-13 08:00] VITALS: BP 141/70
--- NOTE | 2019-09-13 08:20 | NUR ---
PT EATING BREAKFAST, DENIES NEEDS. WCTM.
--- NOTE | 2019-09-13 18:09 | NUR ---
PT EATING DINNER, DENIES NEEDS. WCTM.
--- NOTE | 2019-09-13 19:30 | NUR ---
PT LYING IN BED. CL IN REACH. DENIES NEEDS AT THIS TIME. BED IN LOW SIDE RAILS X2. A/O X4. RESP EVEN AND UNLABORED. BOWEL ACTIVE X4. LUNGS WHEEZY WHEN EXHALATING. WILL CONTINUE TO MONITOR.
[2019-09-13 20:34] VITALS: BP 149/64
--- NOTE | 2019-09-14 00:52 | NUR ---
QUIET HOURS. PT UP WALKING AROUND IN HALLS. C/O LOWER BACK PAIN 6/10 SHARP RADIATING PAIN. REQUESTS PAIN MEDICATION WHENEVER AVAILABLE. INFORMED PT NOT AVAILABLE UNTIL 0130. PT VERBALIZED UNDERSTANDING.
--- NOTE | 2019-09-14 01:45 | NUR ---
PT COMPLAINING OF BACK PAIN. PAIN PILL GIVEN PER MAR. DENIES FURTHER NEEDS. CL IN REACH. WILL CONTINUE TO MONITOR.
--- NOTE | 2019-09-14 04:01 | NUR ---
I have reviewed this patient and I concur with the Shift Assessment completed by the Licensed Practical Nurse today this shift.
--- NOTE | 2019-09-14 05:20 | NUR ---
PT ATTEMPTED WALKING TO BATHROOM TO URINATE AND HAD AN ACCIDENT ON THE WAY TO THE BATHROOM. PT CLEANED UP AND BACK IN BED. CL IN REACH. DENIES FURTHER NEEDS. WCTM
[2019-09-14 07:32] VITALS: BP 152/83
[2019-09-14 07:51] LABS: BASOPHILS 0.1 % (0-2); EOSINOPHILS 0.1 % (0-7); HEMATOCRIT 43.2 % (36.0-48.0); HEMOGLOBIN 14.4 g/dL (12-16); IMMATURE GRANULOCYTES 1.4 % (0-5); LYMPHOCYTES 23.3 % (15-50); MCHC 33.3 g/dL (31.0-37.0); MCV 93.1 fL (80.0-100.0); MEAN PLATELET VOLUME 10.6 fL (7.4-10.4); MONOCYTES 15.2 % (2-11); NEUTROPHILS 59.9 % (40-80); RBC 4.64 10x6/uL (4.00-5.40); RDW 14.3 % (11.5-14.5); WBC 8.4 10x3/uL (4.8-10.8)
[2019-09-14 08:00] LABS: PLATELET COUNT 322 10x3/uL (130-400)
[2019-09-14 08:14] LABS: CALC OSMOLALITY 288 mosm/kg (275-300); CALCIUM 8.3 mg/dL (8.5-10.1); CARBON DIOXIDE 28.6 mmol/L (21.0-32.0); CHLORIDE - SERUM 105 mmol/L (98-107); CREATININE - SERUM 0.7 mg/dL (0.6-1.3); GLUCOSE 128 mg/dL (74-106); POTASSIUM - SERUM 4.7 mmol/L (3.5-5.1); SODIUM 142 mmol/L (136-145); UREA NITROGEN 24 mg/dL (7-18); eGFR NON AFRICAN AMERICAN 86 mL/min (90-120)
--- NOTE | 2019-09-14 08:40 | NUR ---
PT AM MEDS ADMINISTERED. PT DENIES NEEDS. WCTM.
--- NOTE | 2019-09-14 16:11 | NUR ---
PATIENT IS DOING VERY WELL IN THERAPY. DISCHARGE PLANS ARE FOR HER TO RETURN TO HER HOME. TENITIVE DISCHARGE DATE IS 09/18/19. WILL CONTINUE TO FOLLOW WITH PATIENT
--- NOTE | 2019-09-14 18:07 | NUR ---
PT EATING DINNER, DENIES NEEDS. WCTM.
[2019-09-14 19:27] VITALS: BP 145/70
--- NOTE | 2019-09-14 19:48 | NUR ---
PT IS RESTING IN BED WITH EYES OPEN. ALERT AND ORIENTED X 3. DENIES ACUTE DISCOMFORT AT THIS TIME. VSS. NO NEEDS VOICED. RFA SALINE LOCK NOTED. NO SOB NOTED. SR'S ARE UP X 2 IN BED. CALL LIGHT AND BEDSIDE TABLE ARE WITHIN EASY REACH.
--- NOTE | 2019-09-14 21:40 | NUR ---
PT ASSISTED TO THE BATHROOM WITH SBA. VOIDED WITHOUT DIFFICULTY. NO FURTHER NEEDS VOICED.
--- NOTE | 2019-09-15 01:43 | NUR ---
I have reviewed this patient and I concur with the Shift Assessment completed by the Licensed Practical Nurse today this shift.
--- NOTE | 2019-09-15 03:12 | NUR ---
PT MOVED TO 1118D
--- NOTE | 2019-09-15 04:39 | NUR ---
RESTING IN BED WITH EYES CLOSED.
--- NOTE | 2019-09-15 08:03 | NUR ---
PT SITTING ON EDGE OF BED EATING BREAKFAST, DENIES NEEDS. WCTM.
[2019-09-15 08:05] VITALS: BP 168/69
--- NOTE | 2019-09-15 19:27 | NUR ---
PATIENT RECEIVED SITTING UP IN BED. ASSESSMENT & VITAL SIGNS DONE. BED LOW. CALL LIGHT WITHIN REACH. WILL CONTINUE TO MONITOR.
--- NOTE | 2019-09-16 03:05 | NUR ---
I have reviewed this patient and I concur with the Shift Assessment completed by the Licensed Practical Nurse today this shift.
--- NOTE | 2019-09-16 08:50 | NUR ---
PT AM MEDS ADMINISTERED. PT DENIES NEEDS. WCTM.
--- NOTE | 2019-09-16 17:30 | NUR ---
PT SITTING UP EATING DINNER, DENIES NEEDS. WCTM.
--- NOTE | 2019-09-16 19:26 | NUR ---
PT IS RESTING IN BED WATCHING TV. ALERT AND ORIENTED X 3. VOICED COMPLAINT OF A BACK PAIN LEVEL OF 6. SHE STATES HER PAIN MEDICATION IS NOT WORKING PROPERLY, AND SHE NEEDS A STRONGER DOSE. PT CALMS DOWN WHEN SPOKEN TO ABOUT ANOTHER SUBJECT. RIGHT FOREARM SALINE LOCK NOTED. SR'S ARE UP X 2 IN BED. CALL LIGHT AND BEDSIDE TABLE ARE WITHIN EASY REACH.
[2019-09-16 20:00] VITALS: BP 138/73
--- NOTE | 2019-09-16 21:46 | NUR ---
PT RESTING IN BED WATCHING TV. NO ACUTE DISTRESS NOTED.
--- NOTE | 2019-09-16 23:13 | NUR ---
I have reviewed this patient and I concur with the Shift Assessment completed by the Licensed Practical Nurse today this shift.
--- NOTE | 2019-09-17 00:51 | NUR ---
RESTING IN BED WITH EYES CLOSED.
--- NOTE | 2019-09-17 04:40 | NUR ---
RESTING IN BED WITH EYES CLOSED. NO DISTRESS NOTED.
[2019-09-17 06:24] LABS: BASOPHILS 0.2 % (0-2); EOSINOPHILS 0.2 % (0-7); HEMATOCRIT 46.1 % (36.0-48.0); HEMOGLOBIN 15.5 g/dL (12-16); IMMATURE GRANULOCYTES 4.5 % (0-5); LYMPHOCYTES 17.8 % (15-50); MCH 31.4 pg (26.0-34.0); MCHC 33.6 g/dL (31.0-37.0); MCV 93.5 fL (80.0-100.0); MEAN PLATELET VOLUME 10.4 fL (7.4-10.4); MONOCYTES 13.5 % (2-11); NEUTROPHILS 63.8 % (40-80); PLATELET COUNT 358 10x3/uL (130-400); RBC 4.93 10x6/uL (4.00-5.40); RDW 14.4 % (11.5-14.5); WBC 10.6 10x3/uL (4.8-10.8)
[2019-09-17 06:39] LABS: CALC OSMOLALITY 285 mosm/kg (275-300); CALCIUM 8.6 mg/dL (8.5-10.1); CARBON DIOXIDE 28.4 mmol/L (21.0-32.0); CHLORIDE - SERUM 104 mmol/L (98-107); CREATININE - SERUM 0.5 mg/dL (0.6-1.3); GLUCOSE 129 mg/dL (74-106); POTASSIUM - SERUM 4.9 mmol/L (3.5-5.1); SODIUM 141 mmol/L (136-145); UREA NITROGEN 21 mg/dL (7-18); eGFR NON AFRICAN AMERICAN > 90 mL/min (90-120)
[2019-09-17 07:55] VITALS: BP 137/60
--- NOTE | 2019-09-17 09:24 | RHP ---
PATIENT: LAM VERA MEDICAL RECORD: [id number] ACCOUNT: [id number] LOCATION:[facility]1119 : 42 ADMISSION DATE: 09/10/19 REHABILITATION HISTORY AND PHYSICAL EXAMINATION POST ADMISSION PHYSICIAN EXAMINATION ADMITTING DIAGNOSES: Acute exacerbation of chronic obstructive pulmonary disease complicated by pneumonia. HISTORY OF PRESENT ILLNESS: The patient is a 78-year-old female patient who has got history of asthma, fibromyalgia, tracheomalacia, obstructive sleep apnea. 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 The patient apparently presented to the ED after a syncopal episode and subsequent fall. She had chills, body aches, and productive cough. Initial imaging showed an L1 compression fracture with left lower lobe atelectasis. She has had a neurosurgery consult, but no surgery planned until she is medically stable. She is found to have acute asthma, COPD with exacerbation of this. She was unable to get out of her bed to perform ADLs without assistance, but has progressed with PT. She is currently having acute pain. She is on telemetry, IV steroids, IV antibiotics, monitor and oxygen saturation due to her recent use for supplemental O2. She is on electrolyte protocol, deconditioning, weakness, debility, impaired mobility, and gait disturbance. She has a high fall risk and self-care deficits. These are all barriers to her discharge home. Lives at home with her , who is her caregiver and was independent with mobility and ADLs. She currently set up for mod assist with her ADLs and mod assist for mobility. She plans to return home with her who is her main caregiver, hopefully at her prior level of functioning or better. COMORBIDITIES: Include history of rheumatoid arthritis, pneumonia, traumatic fracture of her lumbar vertebrae, syncope, acute exacerbation of COPD, tracheal bronchitis, obstructive sleep apnea, IgG deficiency and pain. PAST MEDICAL HISTORY: Significant for tracheomalacia, obstructive sleep apnea, pulmonary hypertension, rheumatoid arthritis, IgG deficiency, gastric sleeve in 2018, and fibromyalgia. PAST SURGICAL HISTORY: Includes cholecystectomy, knee surgery, appendectomy, gastric sleeve, hysterectomy, tonsillectomy and adenoidectomy. ALLERGIES: No known drug allergies. CURRENT MEDICATIONS: She is on Rocephin and Zithromax, she has got a total of 7 were dosage; on Floranex daily; oxybutynin 15 mg daily; Folic acid 1 mg daily; subcutaneous Lovenox 40 mg daily; aspirin 81 mg daily; polyethylene glycol 17 grams in 8 ounces of water daily; Linzess 145 mcg daily; Protonix 40 mg daily. She is on Solu-Medrol 60 mg IV q.8 hours, Singulair 10 mg at bedtime, Robaxin 500 mg b.i.d., Mucinex 600 mg b.i.d., Colace 100 mg b.i.d., Tessalon Perles 100 mg t.i.d., DuoNeb updrafts as needed, budesonide 0.5 mg b.i.d., Brovana 15 mcg b.i.d., and Tylenol 650 q.4 hours p.r.n. HABITS: No current alcohol or tobacco use. FAMILY HISTORY: Noncontributory. SOCIAL HISTORY: The patient hopes to return home and get back to her prior HISTORY AND PHYSICAL [id number] LAM VERA level of functioning. REVIEW OF SYSTEMS: GENERAL: Denies weakness or fatigue. HEENT: Denies cold, cough, or congestion. CARDIOVASCULAR: Denies chest pain. PHYSICAL EXAMINATION: VITAL SIGNS: Stable, afebrile. GENERAL: A somewhat obese female, in no distress, alert upon exam. HEENT: Normocephalic and atraumatic. Mucosa moist. NECK: Supple. No lymphadenopathy. LUNGS: Clear in upper bess. She does have decreased breath sounds in the bases. HEART: Regular rate and rhythm. She does have a holosystolic murmur. ABDOMEN: Soft, benign, and nondistended. Positive bowel sounds times 4. EXTREMITIES: No clubbing, cyanosis, or edema. NEUROLOGIC: She does have noted decreased muscular strength in her proximal muscles or her thighs. LABORATORY DATA: White count is 9.4, H&H 13 and 41, platelet count is 267. Sodium is 140, potassium 4.3, BUN and creatinine of 17 and 0.6, and blood sugar is noted be 132. ASSESSMENT: This is a 78-year-old female patient admitted to the rehab with a working diagnosis of acute exacerbation of chronic obstructive pulmonary disease complicated by pneumonia and compression fracture. The patient has potential to make improvement. We instituted the following multidisciplinary therapies including, but not limited to physical, occupational, respiratory, speech, nutritional services, prosthetics and orthotics. Given her complex medical condition and risk for more complications, rehabilitation services cannot be provided at a low level of care such as [facility] facility. PLAN: 1. Admit to [facility] for intensive inpatient therapy to include the following disciplines: A. Physical therapy to improve gait, all transfer skills and bed mobility to a modified independent level. B. Occupational therapy to improve activities of daily living to a modified independent level. C. Case management to assist with discharge planning and placement options. D. Nutrition to assist with nutritional needs. E. Rehabilitation nursing to assist in monitoring the patient's underlying medical conditions and to assist with any type of bowel or bladder management. 2. The patient's current medication and medical care will be continued. 3. The patient will be placed on standard fall precautions. 4. The patient's estimated length of stay is approximately 7-10 days. 5. We will discuss this patient during care team staff meeting this week. TRANSINT:[id number] Voice Confirmation ID: [id number] DOCUMENT ID: [id number] ANAY notes whether there has been none or any medical/functional change since admission: - No change since prescreen. HISTORY AND PHYSICAL [id number] LAM VERA attests patient continues to be appropriate for IRF: - Continues to be appropriate. BRIAN MAYER MD at 0924 CC: [id number] DICTATION DATE: 09/11/19 0853 FLAVOR TANK TENDER: 09/11/19 1001 ADM IN [facility] [address] [place] [address]
--- NOTE | 2019-09-17 09:27 | NUR ---
PATIENT RESTING IN BED ALERT/ORINT. CALL LIGHT WITHIN REACH. VOICES NO NEEDS. WILL CONTINUE WITH PLAN OF CARE
--- NOTE | 2019-09-17 10:05 | NUR ---
I have reviewed this patient and I concur with the Shift Assessment completed by the Licensed Practical Nurse today this shift.
--- NOTE | 2019-09-17 11:10 | NUR ---
PATIENT IS IN REHAB ROOM. WORKING WITH PHYSICAL THERAPIST. DENIES ANY PAIN/DISC AT THIS TIME.
--- NOTE | 2019-09-17 12:50 | NUR ---
PATIENT HAS SIGNED BED AND CHAIR ALARM WAVIOR. TAKING SELF TO BATHROOM USING WHEELED WALKER. GAIT STEADY WITH WHEELED WALKER
--- NOTE | 2019-09-17 13:24 | NUR ---
Nutrition Follow-up: Diet: regular, full portions PO intake: ~70% average x last 9 meals recorded. Patient reports that she has been eating well. States that appetite was low due to "impaction" but got laxitives and states that she now has diarrhea. She is happy with current diet order. Last BM = 09/16/19 x 2. Wt: 210# (09/11/19). Labs noted: Glu 129. Significant meds: prednisone, rocephin. "reddened area" to buttocks per nursing skin assessment. Continue current nutrition regimen. RD Following.
--- NOTE | 2019-09-17 19:37 | NUR ---
PT IS RESTING IN BED WITH EYES OPEN. ALERT AND ORIENTED X 3. DENIES ACUTE PAIN OR DISCOMFORT AT THIS ITME. PT DID COMPLAIN OF THE LIGHT FROM THE HALLWAY MAKING HER LEFT EYE HAVE SHOOTING PAINS, BUT THAT IT DOES NOT DO THIS IF THE DOOR IS SHUT. DOOR SHUT FOR PT. RFA SALINE LOCK NOTED. SR'S ARE UP X 2 IN BED. CALL LIGHT AND BEDSIDE TABLE ARE WITHIN EASY REACH.
[2019-09-17 21:06] VITALS: BP 118/59
--- NOTE | 2019-09-17 22:00 | NUR ---
PT RESTING IN BED WATCHING TV. NO NEEDS VOICED.
--- NOTE | 2019-09-17 22:20 | NUR ---
I have reviewed this patient and I concur with the Shift Assessment completed by the Licensed Practical Nurse today this shift.
--- NOTE | 2019-09-18 01:55 | NUR ---
PT AWAKE, AMBULATING IN HALLS. NO ACUTE DISTRESS NOTED.
[2019-09-18 08:04] VITALS: BP 148/67
--- NOTE | 2019-09-18 08:40 | NUR ---
PT AM MEDS ADMINISTERED. PT DENIES NEEDS. WCTM.
[2019-09-18] MEDS ORDERED: OMNICEF300 MG PO (08:49)
[2019-09-18] MEDS ORDERED: STERAPRED 5MG 125 MG PO (08:49)
--- NOTE | 2019-09-18 09:59 | NUR ---
PATIENT DISCHARGING HOME TODAY WITH FAMILY. [facility] WILL PROVIDE THERAPY AT HOME. NO NEW DME NEEDED AT THIS TIME. DR. CARLOS 09/26/19 @ 10:00, 09/20/19 @ 11:00, DR. PARRA 12/11/2019, @ 11:15.PATIENT CHOICE FORM ( HANDOUT GIVEN AND EXPLAINED, COMPARE DATA EXPLAINED AND PATIENT VOICED UNDERSTANDING). DISCHARGE INSTRUCTIONS FAXED TO PCP, HOME HEALTH AND REVIEWED WITH PATIENT PER NURSE.
--- NOTE | 2019-09-18 10:47 | NUR ---
PT DISCHARGE INSTRUCTIONS REVIEWED, PT STATES UNDERSTANDING. MEDICATIONS CALLED IN TO [facility] ON [address].
--- NOTE | 2019-09-18 13:03 | NUR ---
PT DISCHARGED HOME WITH . PT ESCORTED OUT BY HOSPITAL STAFF.
== END 2019-09-18 13:04 | disposition home health service (06) | DRG 190 ==
LOC: D.REHAB 17:45
PROVIDERS: ADMIT Emergency Medicine; ATTEND Emergency Medicine
DX: J44.1 Chronic obstructive pulmonary disease with (acute) exacerbation (principal); J18.9 Pneumonia, unspecified organism; M06.9 Rheumatoid arthritis, unspecified; R55 Syncope and collapse; G47.33 Obstructive sleep apnea (adult) (pediatric); R53.81 Other malaise; S32.019D Unspecified fracture of first lumbar vertebra, subsequent encounter for fracture with routine healing; W19.XXXD Unspecified fall, subsequent encounter; M79.7 Fibromyalgia; R53.1 Weakness; J45.909 Unspecified asthma, uncomplicated